=== PATIENT | female | born 2000 | race Caucasian/White ===

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

== ENCOUNTER 2018-08-29 10:15 | Inpatient (IN) | payer MEDICAID ==
[2018-08-29] MEDS ORDERED: diphenhydrAMINE 50 MG/ML SDV IVPUSH PRN (10:30)
[2018-08-29] MEDS ORDERED: Methylergonovine 0.2 MG/1 ML Amp IM PRN (10:30)
[2018-08-29] MEDS ORDERED: Citric Acid/Sodium Citrate Solution 30 ML Cup PO ONE (10:30)
[2018-08-29] MEDS ORDERED: ceFAZolin 2 GM in Premix Bag 1 BAG IV ONE (10:30)
[2018-08-29] MEDS ORDERED: Naloxone 2 MG/2 ML Syringe IVPUSH PRN (10:30)
[2018-08-29] MEDS ORDERED: Misoprostol 400 MCG (4 X 100 MCG TAB) RECTAL PRN (10:30)
[2018-08-29] MEDS ORDERED: Carboprost Tromethamine 250 MCG/1 ML Amp IM ONE (10:30)
[2018-08-29] MEDS ORDERED: Ondansetron 4 MG/2 ML SDV IV PRN (10:30)
[2018-08-29] MEDS ORDERED: Acetaminophen/oxyCODONE 325-5 MG Tab PO PRN (10:30)
[2018-08-29] MEDS ORDERED: Oxytocin/Normal Saline 30 UNIT/500 ML BAG IV SCH (10:30)
[2018-08-29] MEDS ORDERED: Acetaminophen 325 MG Tab PO PRN (10:30)
[2018-08-29] MEDS ORDERED: ePHEDrine 50 MG/ML SDV IVPUSH PRN (10:30)
[2018-08-29] MEDS ORDERED: Tranexamic Acid 1,000 MG in Sodium Chloride 0.9% 100 ML IV PRN (10:30)
[2018-08-29] MEDS: Lactated Ringers 1,000 ML IV SCH ×3 (11:30→21:33)
[2018-08-29] MEDS ORDERED: Oxytocin/Normal Saline 60 UNIT/1,000 ML BAG ONE (11:57)
[2018-08-29] MEDS: Simethicone 80 MG Tab.Chew PO SCH ×2 (18:27→20:18)
[2018-08-29] MEDS: Prenatal Multivitamin with Calcium/Folic Acid/Iron Tab PO SCH (18:27)
[2018-08-29] MEDS: AMOXICILLIN 875 MG PO SCH ×2 (18:28→20:11)
[2018-08-29] MEDS: Ketorolac 30 MG/ML SDV IVPUSH SCH (20:12)
[2018-08-30] MEDS: Ketorolac 30 MG/ML SDV IVPUSH SCH ×2 (01:56→09:12)
[2018-08-30] MEDS: Lactated Ringers 1,000 ML IV SCH (04:28)
[2018-08-30] MEDS: Docusate Sodium 100 MG Cap PO PRN ×2 (09:16→21:23)
[2018-08-30] MEDS: Simethicone 80 MG Tab.Chew PO SCH ×4 (09:16→21:23)
[2018-08-30] MEDS: AMOXICILLIN 875 MG PO SCH ×2 (09:16→21:22)
[2018-08-30] MEDS: Prenatal Multivitamin with Calcium/Folic Acid/Iron Tab PO SCH (09:16)
--- NOTE | 2018-08-30 09:53 | OR ---
DATE: 08/29/2018 PREOPERATIVE DIAGNOSES: 1. Intrauterine at 39-3/7th weeks by 12-4/7th weeks' ultrasound. 2. Previous section x2, requests repeat low transverse section. 3. History of urinary tract infection in the , treated, and negative culture thereafter. 4. Group B Streptococcus negative. 5. Impaired glucose tolerance. 6. Bacterial vaginosis - treated earlier in the . 7. Currently on amoxicillin for upper respiratory illness over this last week. 8. G3, P2-0-0-2. POSTOPERATIVE DIAGNOSES: 1. Intrauterine at 39-3/7th weeks by 12-4/7th weeks' ultrasound, delivered. 2. Previous section x2, requests repeat low transverse section. 3. History of urinary tract infection in the , treated and negative culture thereafter. 4. Group B Streptococcus negative. 5. Impaired glucose tolerance. 6. Bacterial vaginosis-treated earlier in the . 7. Currently on amoxicillin for upper respiratory illness over this last week. 8. G3, P2-0-0-2. PROCEDURES PERFORMED: Nonstress test followed by repeat low transverse section. FIRST ASSISTANTS: 1. Virgil Johnson MD. 2. Rafael Tineo MS-III. ANESTHESIA: Spinal. ESTIMATED BLOOD LOSS: 500 mL. INTRAVENOUS FLUIDS: 1500 mL. URINE OUTPUT: 200 mL and clear yellow. START: 1305. UTERINE INCISION: 1309. DELIVERY: 1309. STOP: 1329. FINDINGS: Male. Apgars and weight pending. DESCRIPTION OF PROCEDURE IN DETAIL: After proper consent obtained, the patient was brought to the operating room where spinal anesthetic was administered. Weaver was placed in preop under sterile conditions. Abdomen was prepped and draped in normal sterile fashion with the patient was placed in supine position with left lateral tilt. Skin incision was then made over lower abdomen in transverse Pfannenstiel-type fashion avoiding a pustule superior to the incision which was covered with a Tegaderm prior to this. The fascia was scored in the midline. Subcutaneous tissue was raked laterally with Herzog retractor. Fascial incision was extended in a transverse fashion using curved Pereyra. Nini clamps x2 were used to grasp the superior aspect of the fascia and rectus muscles dissected from fascia using sharp and blunt technique. In a similar fashion, Nini clamps x2 were used to grasp the inferior portion of the incision, and rectus and pyramidalis muscles were dissected from fascia using sharp and blunt technique. Rectus muscles were in midline with blunt technique. Abdominal cavity was then entered in a blunt technique. Incision was extended superiorly and inferiorly with blunt technique. Rafael O large retractor was then introduced and used. Vesicouterine peritoneum was identified and incised in transverse fashion with Metzenbaum scissors. Bladder flap was made digitally. A curvilinear incision was made on the lower uterine segment at 1309 hours. Uterus was entered sharply. Clear fluid returned. Uterine incision was then extended in transverse fashion using blunt technique. vertex was then brought through the incision followed by rest of the without difficulty and delivered. Mouth and nares were suctioned. Cord was doubly clamped and cut and infant was brought to team. Then, approximately 10 mL of cord blood was obtained for labs. Placenta then delivered with gentle cord traction and fundal massage. Uterine cavity was then cleared of all blood clots and debris with lap sponge. Miller clamps were used to grasp the uterine incision, and this was closed using 1-0 Vicryl in a running locked fashion and tied at lateral margins. Left lateral portion of incision revealed some bleeding, and 2 [id number] stitches were applied and hemostasis was reassured. First inspection of the uterine incision revealed hemostasis. Rafael O retractor was then removed, and paracolic gutters were then cleared of all blood clots and debris with lap sponge. Anterior cul-de-sac was irrigated copiously. All blood clots and debris were removed. Second and final inspection of the uterine incision and anterior cul-de-sac revealed hemostasis. Rectus muscles were reapproximated in midline with [id number] stitch using 1-0 Vicryl. Subfascial tissues were found to be hemostatic. Fascia was closed in a running fashion and tied at lateral margins with 0 looped PDS. Subcutaneous tissue was irrigated copiously. Hemostasis was reassured. Skin was reapproximated with medium moises. Lesion that was covered with Tegaderm, the dressing came off when removing surgical drapes. Therefore, this was closed with Dermabond to seal this off. Sterile Aquacel dressing was applied. Uterine fundus was firm and massaged at the conclusion of this case -2 below umbilicus. No immediate complications were noted. Sponge, lap, and needle counts were correct. The patient received 2 g of Ancef preoperatively, Pitocin per protocol, and will receive Toradol at the conclusion of the case for pain control. Mother and infant are currently stable at the time of dictation. [facility] /[id number]
--- NOTE | 2018-08-30 10:05 | OBOUT ---
DATE: 08/29/2018 DATE AND TIME OF NST: Date: 08/29/2018. Time: 10:32 to 10:52. REASON FOR NST: 1. Intrauterine at 39-3/7th weeks by 12-4/7th weeks' ultrasound. 2. Previous x2, requests repeat low transverse section. 3. History of UTI in the - treated and negative culture thereafter. 4. GBS negative. 5. Impaired glucose tolerance. 6. BV - treated. 7. On amoxicillin currently for URI. 8. G3, P2-0-0-2. NST INTERPRETATION: During this time period, heart tone baseline is approximately 125, and there are at least two 15 x 15 beat per minute accelerations, making this strip reactive. It is also noted to be reassuring. Tocometer reveals potential of 1 contraction. Blood pressure 119/73, heart rate 100, temperature 97.4. ASSESSMENT/PLAN: 1. Non-stress test - reactive, reassuring. 2. Tocometer with 1 contraction. PLAN: Please see admit history and physical done in conjunction and through [employer]. Today, review of systems is otherwise reviewed and felt to be noncontributory. Vitals as above. We will proceed to the OR as soon as crew is ready and available. The patient does have a name change. She was Chani Yan in the [employer] system and as unable to change it at this point in time, it has been noted. We will continue with current treatment plans. Please see orders as well. [facility] /[id number]
[2018-08-30] MEDS ORDERED: Ketorolac 30 MG/ML SDV IVPUSH ONE (11:55)
[2018-08-30] MEDS ORDERED: Ondansetron 4 MG/2 ML SDV IV ONE (11:55)
[2018-08-30] MEDS ORDERED: Lactated Ringers 1,000 ML IV ONE (11:55)
[2018-08-30] MEDS ORDERED: Dexamethasone 4 MG/ML SDV IV ONE (11:55)
[2018-08-30] MEDS ORDERED: Morphine PF 1 MG/ML Amp ONE (11:55)
[2018-08-30] MEDS ORDERED: Metoclopramide 10 MG/2 ML SDV IV ONE (11:55)
--- NOTE | 2018-08-30 14:41 | PN ---
DATE: 08/30/2018 Postoperative day #1, status post repeat low-transverse . SUBJECTIVE: The patient is tolerating p.o., has ambulated. Weaver is in place. Passing flatus. Pain is under control. Continues on her home medicines of amoxacillin as she was put on this for URI. OBJECTIVE: Vital Signs: Temperature 97.9, heart rate 80, blood pressure 117/64, respiratory rate 16, O2 sats 96%. Lungs: Clear to auscultation bilaterally when the patient coughs. Heart: S1, S2. Regular rate and rhythm. Abdomen: Firm uterus -2 below umbilicus. Aquacel dressing appears dry and intact. Extremities: SCDs and AMI hose are on. LABORATORY DATA: Reveal a white cell count of 17.3, hemoglobin 11.2, platelets 200. ASSESSMENT AND PLAN: Postoperative day #1, status post repeat low-transverse section. Appears to be doing well. We will continue her on amoxicillin for upper respiratory tract infection. Possibility of discharge tomorrow. Discussed with the patient. She understands and agrees with the above treatment plan. [facility] /[id number]
[2018-08-30] MEDS: Acetaminophen/oxyCODONE 325-5 MG Tab PO PRN ×2 (17:24→21:23)
[2018-08-30] MEDS: Ibuprofen 800 MG Tab PO PRN (17:25)
[2018-08-31] MEDS: Acetaminophen/oxyCODONE 325-5 MG Tab PO PRN ×4 (01:09→17:56)
[2018-08-31] MEDS: Ibuprofen 800 MG Tab PO PRN ×3 (01:10→17:56)
[2018-08-31] MEDS: Prenatal Multivitamin with Calcium/Folic Acid/Iron Tab PO SCH ×2 (07:32→10:27)
[2018-08-31] MEDS: Docusate Sodium 100 MG Cap PO PRN (07:33)
[2018-08-31] MEDS: Simethicone 80 MG Tab.Chew PO SCH ×5 (07:34→21:16)
[2018-08-31] MEDS: AMOXICILLIN 875 MG PO SCH ×3 (07:38→21:16)
--- NOTE | 2018-08-31 08:36 | PN ---
DATE: 08/31/2018 Postop day 2 status post repeat low-transverse . SUBJECTIVE: The patient is tolerating diet, ambulating, and having bowel movements. She is able to urinate on her own, but it does hurt towards the end. She feels burning and her cramps get worse. Pain is under control. She continues on her home medications of amoxicillin as she was on this for upper respiratory infection. She has had very light bleeding and some cramping that is better with the frog-leg position. is going well, but he is breast-feeding more on the right than the left. OBJECTIVE: Vital Signs: Temperature 98.9, pulse 93, blood pressure 126/74, respiratory rate 18, and oxygen saturation 97%. Lungs: Clear to auscultation bilaterally. Heart: S1 and S2. Regular rate and rhythm. Abdomen: Firm uterus, 2 cm below the umbilicus. Aquacel dressing appears dry and intact. Extremities: No peripheral edema. ASSESSMENT AND PLAN: Postoperative day 2 status post repeat low-transverse section. Appears to be doing well. Continue on her amoxicillin for upper respiratory tract infection. The patient agrees with above treatment plan. Planning on discharge tomorrow. The patient was seen by myself and Dr. Sheikh. Assessment and plan are under advisement of Dr. Sheikh. seen and agreed-TONYW Rafael Tineo, MS-III [facility] /[id number] MTDD
[2018-08-31] MEDS: Sodium Chloride 0.65% Nasal Spray 45 ML Bottle NAS PRN ×3 (09:39→21:17)
[2018-09-01] MEDS: Acetaminophen/oxyCODONE 325-5 MG Tab PO PRN ×3 (00:52→13:14)
[2018-09-01] MEDS: Ibuprofen 800 MG Tab PO PRN ×2 (00:52→10:43)
[2018-09-01] MEDS: Docusate Sodium 100 MG Cap PO PRN (07:56)
[2018-09-01 08:19] VITALS: BP 130/80
[2018-09-01] MEDS: AMOXICILLIN 875 MG PO SCH (09:24)
[2018-09-01] MEDS: Prenatal Multivitamin with Calcium/Folic Acid/Iron Tab PO SCH (09:24)
[2018-09-01] MEDS: Simethicone 80 MG Tab.Chew PO SCH ×2 (09:26→13:14)
--- NOTE | 2018-09-01 12:57 | PN ---
DATE: 09/01/2018 LOCATION: [facility]. SUBJECTIVE: The patient is postoperative day #3, status post repeat . Mom and baby are both doing well. She is ambulating, voiding, tolerating p.o. Good pain control. OBJECTIVE: Vital Signs: The patient is afebrile. Heart rate 84 to 101, blood pressure 115 to 130 over 57 to 80, respiratory rate 16 to 18. Abdomen: Benign. The Aquacel dressing is in place. Fundus is firm below the umbilicus. Extremities: Have no tenderness, no edema. LABORATORY DATA: The patient's postoperative hemoglobin was 11.2 from 12.5 predelivery. The patient's blood type is A positive. She is rubella immune. ASSESSMENT AND PLAN: Postoperative day #3, status post repeat section. Mom and baby are both doing well. We will discharge her to home with 20 Percocet and she will see her primary next week to have the moises and the Aquacel dressing removed. [facility] /[id number]
[2018-09-01] MEDS ORDERED: Oxytocin/Normal Saline 30 UNIT/500 ML BAG IV ONE (13:44)
== END 2018-09-01 13:45 | disposition home or self-care (01) | DRG 788 ==
LOC: DL.MS 10:15 → OBSVTOIN 13:09
PROVIDERS: ADMIT Family Medicine; ATTEND Family Medicine
PROC: 10D00Z1 Extraction of Products of Conception, Low, Open Approach (ICD-10-PCS; principal; 2018-08-29)
PROC: 4A1HXCZ Monitoring of Products of Conception, Cardiac Rate, External Approach (ICD-10-PCS; 2018-08-29)
DX: O34.211 Maternal care for low transverse scar from previous cesarean delivery (principal); O99.814 Abnormal glucose complicating childbirth; O99.513 Diseases of the respiratory system complicating pregnancy, third trimester; J06.9 Acute upper respiratory infection, unspecified; O99.333 Smoking (tobacco) complicating pregnancy, third trimester; F17.200 Nicotine dependence, unspecified, uncomplicated; Z3A.39 39 weeks gestation of pregnancy; Z37.0 Single live birth
CPT/HCPCS: 36415; 85027; 86850; 86900; 86901; A9270-GY; J0690; J1100; J1885; J2274; J2405; J2590; J2765; J7120

== ENCOUNTER 2019-04-19 19:21 | Emergency (ER) | payer MEDICAID ==
--- NOTE | 2019-04-19 19:35 | EDM.PDOC ---
ED HPI GENERAL MEDICAL PROBLEM - General Chief Complaint: Upper Extremity Injury/Pain Stated Complaint: SPRAINED RT HAND Time Seen by Provider: 04/19/19 19:33 Source of Information: Reports: Patient History Limitations: Reports: No Limitations - History of Present Illness INITIAL COMMENTS - FREE TEXT/NARRATIVE: twister right wrist. 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 History: right ovarian cysts, BV with Musculoskeletal History: Reports: None Neurological History: Reports: None Psychiatric History: Reports: ADHD, Depression Other Psychiatric History: trazadone for sleep Endocrine/Metabolic History: Reports: Other (See Below) Other Endocrine/Metabolic History: impaired glucose tolerance test Hematologic History: Reports: Anemia Immunologic History: Reports: None Oncologic (Cancer) History: Reports: None Dermatologic History: Reports: None - Infectious Disease History Infectious Disease History: Reports: Influenza - Past Surgical History HEENT Surgical History: Reports: Adenoidectomy, Tonsillectomy Female Surgical History: Reports: Section Social & Family History - Family History Family Medical History: Noncontributory Respiratory: Reports: Asthma Psychiatric: Reports: Anxiety, Bipolar - Caffeine Use Caffeine Use: Reports: None Caffeine Use Comment: occassional caffiene usage - Living Situation & Occupation Living situation: Reports: with Family Occupation: Student Review of Systems - Review of Systems Review Of Systems: Comprehensive ROS is negative, except as noted in HPI. ED EXAM, GENERAL - Physical Exam Exam: See Below Exam Limited By: No Limitations General Appearance: Alert, WD/WN, Mild Distress, Other (discomfort) Ears: Hearing Grossly Normal Throat/Mouth: Normal Voice, No Airway Compromise Head: Atraumatic Neck: Non-Tender, Full Range of Motion Respiratory/Chest: No Respiratory Distress Cardiovascular: Regular Rate, Rhythm GI/Abdominal: Soft, Non-Tender Extremities: Other (right wirst tender R/P, NV wnl, mild swelling) Neurological: Alert, Normal Cognition, Normal Gait, No Motor/Sensory Deficits Psychiatric: Normal Affect, Normal Mood Skin Exam: Warm, Dry, Normal Color Lymphatic: No Adenopathy Course - Vital Signs Last Recorded V/S: Last Vital Signs Temp 35.9 C 04/19/19 19:34 Pulse 101 H 04/19/19 19:34 Resp 16 04/19/19 19:34 BP 121/84 04/19/19 19:34 Pulse Ox 100 04/19/19 19:34 - Orders/Labs/Meds Orders: Active Orders 24 hr Category Date Time Status Wrist Comp Min 3V Rt [CR] Urgent Exams 04/19/19 19:33 Taken - Re-Assessments/Exams Free Text/Narrative Re-Assessment/Exam: 04/19/19 20:34 results discussed with pt. Departure - Departure Time of Disposition: 20:34 Disposition: Home, Self-Care 01 Condition: Good Clinical Impression: Sprain of wrist, right Qualifiers: Encounter type: initial encounter Qualified Code(s): S63.501A - Unspecified sprain of right wrist, initial encounter - Discharge Information Instructions: Wrist Sprain, Adult Forms: ED Department Discharge Additional Instructions: 1) wear brace for comfort 2) take tylenol or motrin for discomfort 3) follow up at clinic Sepsis Event Note - Focused Exam Vital Signs: Vital Signs Temp Pulse Resp BP Pulse Ox 04/19/19 19:34 35.9 C 101 H 16 121/84 100 Date Exam was Performed: 04/19/19 Time Exam was Performed: 20:34 - My Orders Last 24 Hours: My Active Orders 04/19/19 19:33 Wrist Comp Min 3V Rt [CR] Urgent - Assessment/Plan Last 24 Hours: My Active Orders 04/19/19 19:33 Wrist Comp Min 3V Rt [CR] Urgent
[2019-04-19 19:47] VITALS: BP 121/84; PULSE 101
== END 2019-04-19 20:40 | disposition home or self-care (01) ==
LOC: DL.ED 19:21
DX: S63.501A Unspecified sprain of right wrist, initial encounter (principal); J45.909 Unspecified asthma, uncomplicated; Z91.040 Latex allergy status; Z91.048 Other nonmedicinal substance allergy status; Z88.8 Allergy status to other drugs, medicaments and biological substances; X50.1XXA Overexertion from prolonged static or awkward postures, initial encounter
CPT/HCPCS: 73110-RT; 99283-25

== ENCOUNTER 2019-04-21 18:45 | Emergency (ER) | payer MEDICAID ==
[2019-04-21] MEDS ORDERED: Albuterol 6.7 GM Inhaler INH ONE ×2 (18:46→19:41)
[2019-04-21 18:51] VITALS: BP 144/82; PULSE 110
[2019-04-21] MEDS ORDERED: Azithromycin 250 MG Tab PO ONE (19:38)
--- NOTE | 2019-04-21 19:45 | EDM.PDOC ---
ED HPI GENERAL MEDICAL PROBLEM - General Chief Complaint: Respiratory Problem Stated Complaint: RESPIRATORY PROBLEM Time Seen by Provider: 04/21/19 19:41 Source of Information: Reports: Patient History Limitations: Reports: No Limitations - History of Present Illness INITIAL COMMENTS - FREE TEXT/NARRATIVE: cough spasms past 2 days. 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: right ovarian cysts, BV with Musculoskeletal History: Reports: None Neurological History: Reports: None Psychiatric History: Reports: ADHD, Depression Other Psychiatric History: trazadone for sleep Endocrine/Metabolic History: Reports: Other (See Below) Other Endocrine/Metabolic History: impaired glucose tolerance test Hematologic History: Reports: Anemia Immunologic History: Reports: None Oncologic (Cancer) History: Reports: None Dermatologic History: Reports: None - Infectious Disease History Infectious Disease History: Reports: Influenza - Past Surgical History HEENT Surgical History: Reports: Adenoidectomy, Tonsillectomy Female Surgical History: Reports: Section Social & Family History - Family History Family Medical History: Noncontributory Respiratory: Reports: Asthma Psychiatric: Reports: Anxiety, Bipolar - Tobacco Use Smoking Status *Q: Current Every Day Smoker Years of Tobacco use: 4 Packs/Tins Daily: 0.5 Second Hand Smoke Exposure: Yes - Caffeine Use Caffeine Use: Reports: None Caffeine Use Comment: occassional caffiene usage - Recreational Drug Use Recreational Drug Use: No - Living Situation & Occupation Living situation: Reports: with Family Occupation: Student ED ROS GENERAL - Review of Systems Review Of Systems: Comprehensive ROS is negative, except as noted in HPI. ED EXAM, GENERAL - Physical Exam Exam: See Below Exam Limited By: No Limitations General Appearance: Alert, WD/WN, Mild Distress, Other (cough spasms) Ears: Hearing Grossly Normal Throat/Mouth: Normal Voice, No Airway Compromise Head: Atraumatic Neck: Non-Tender, Full Range of Motion Respiratory/Chest: No Accessory Muscle Use, Rhonchi. No: Decreased Breath Sounds Cardiovascular: Regular Rate, Rhythm GI/Abdominal: Soft, Non-Tender Neurological: Alert, Oriented, Normal Cognition, Normal Gait, No Motor/Sensory Deficits Psychiatric: Normal Affect, Normal Mood Skin Exam: Warm, Dry, Normal Color Lymphatic: No Adenopathy Course - Vital Signs Last Recorded V/S: Last Vital Signs Temp 35.8 C 04/21/19 18:48 Pulse 110 H 04/21/19 18:48 Resp 18 04/21/19 18:48 BP 144/82 H 04/21/19 18:48 Pulse Ox 100 04/21/19 18:48 - Orders/Labs/Meds Orders: Active Orders 24 hr Category Date Time Status Chest 2V [CR] Urgent Exams 04/21/19 19:16 Ordered Meds: Medications Discontinued Medications Generic Name Dose Route Start Last Admin Trade Name Freq PRN Reason Stop Dose Admin Azithromycin 500 mg 04/21/19 19:38 Zithromax PO 04/21/19 19:39 ONETIME ONE Departure - Departure Time of Disposition: 19:43 Disposition: Home, Self-Care 01 Condition: Good Clinical Impression: Bronchospasm with bronchitis, acute - Discharge Information Instructions: Acute Bronchitis, Adult, [id number] Additional Instructions: 1) don't sleep flat at night 2) drink lots of liquids 3) recheck as needed rx togo; albuterol inhaler tid prn rx given; z-kaelyn medrol dospak Sepsis Event Note - Evaluation Sepsis Screening Result: No Definite Risk - Focused Exam Vital Signs: Vital Signs Temp Pulse Resp BP Pulse Ox 04/21/19 18:48 35.8 C 110 H 18 144/82 H 100 Date Exam was Performed: 04/21/19 Time Exam was Performed: 19:41 - My Orders Last 24 Hours: My Active Orders 04/21/19 19:16 Chest 2V [CR] Urgent - Assessment/Plan Last 24 Hours: My Active Orders 04/21/19 19:16 Chest 2V [CR] Urgent
== END 2019-04-21 19:49 | disposition home or self-care (01) ==
LOC: DL.ED 18:45
DX: J20.9 Acute bronchitis, unspecified (principal); F17.210 Nicotine dependence, cigarettes, uncomplicated; Z91.09 Other allergy status, other than to drugs and biological substances; Z91.040 Latex allergy status; Z88.8 Allergy status to other drugs, medicaments and biological substances
CPT/HCPCS: 71046; 99283; A9270

== ENCOUNTER 2019-06-14 22:11 | Emergency (ER) | payer MEDICAID ==
[2019-06-15 00:07] VITALS: BP 133/79; PULSE 87
[2019-06-15] MEDS ORDERED: Ondansetron 4 MG Tab.DIS PO ONE (00:15)
--- NOTE | 2019-06-15 00:51 | EDM.PDOC ---
ED HPI GENERAL MEDICAL PROBLEM - General Chief Complaint: Gastrointestinal Problem Stated Complaint: VOMITING Time Seen by Provider: 06/15/19 00:15 Source of Information: Reports: Patient, RN, RN Notes Reviewed History Limitations: Reports: No Limitations - History of Present Illness INITIAL COMMENTS - FREE TEXT/NARRATIVE: patient presents to the ER with complaint of vomiting which began at 8:30 PM this evening. Patient states she has vomited twice. Patient admits to diarrhea that began this morning. Patient states she last had supper at [facility]. Patient states she is sexually active, but has taken 3 tests in the past 3 days and they have been negative. Patient denies fever or chills. Onset: Today, Sudden - Related Data Allergies Allergy/AdvReac Type Severity Reaction Status Date / Time latex Allergy Rash Verified 06/14/19 23:42 lisdexamfetamine dimesylate Allergy Hives Verified 06/14/19 23:42 [From Vyvanse] tape adhesive Allergy Rash Uncoded 06/14/19 23:42 Home Meds: Home Meds . 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: right ovarian cysts, BV with Musculoskeletal History: Reports: None Neurological History: Reports: None Psychiatric History: Reports: ADHD, Depression Other Psychiatric History: trazadone for sleep Endocrine/Metabolic History: Reports: Other (See Below) Other Endocrine/Metabolic History: impaired glucose tolerance test Hematologic History: Reports: Anemia Immunologic History: Reports: None Oncologic (Cancer) History: Reports: None Dermatologic History: Reports: None - Infectious Disease History Infectious Disease History: Reports: Influenza - Past Surgical History HEENT Surgical History: Reports: Adenoidectomy, Tonsillectomy Female Surgical History: Reports: Section Social & Family History - Family History Family Medical History: Noncontributory Respiratory: Reports: Asthma Psychiatric: Reports: Anxiety, Bipolar - Tobacco Use Smoking Status *Q: Current Every Day Smoker Years of Tobacco use: 6 Packs/Tins Daily: 1 Second Hand Smoke Exposure: Yes - Caffeine Use Caffeine Use: Reports: Coffee, Energy Drinks, Soda Caffeine Use Comment: occassional caffiene usage - Recreational Drug Use Recreational Drug Use: No - Living Situation & Occupation Living situation: Reports: with Family Occupation: Student ED ROS GENERAL - Review of Systems Review Of Systems: Comprehensive ROS is negative, except as noted in HPI. ED EXAM, GENERAL - Physical Exam Exam: See Below Exam Limited By: No Limitations General Appearance: Alert, WD/WN, No Apparent Distress Eye Exam: Bilateral Eye: EOMI, Normal Inspection Ears: Normal External Exam, Hearing Grossly Normal Nose: Normal Inspection Throat/Mouth: Normal Inspection, Normal Voice, No Airway Compromise Head: Atraumatic, Normocephalic Neck: Normal Inspection, Supple, Non-Tender, Full Range of Motion Respiratory/Chest: No Respiratory Distress, Lungs Clear, Normal Breath Sounds, No Accessory Muscle Use, Chest Non-Tender Cardiovascular: Normal Peripheral Pulses, Regular Rate, Rhythm, No Edema, No Gallop, No JVD, No Murmur, No Rub GI/Abdominal: Normal Bowel Sounds, Soft, Tender (epigastric) (Female) Exam: Deferred Rectal (Female) Exam: Deferred Back Exam: Normal Inspection, Full Range of Motion Extremities: Normal Inspection, Normal Range of Motion, Non-Tender, Normal Capillary Refill, No Pedal Edema Neurological: Alert, Oriented, CN II-XII Intact, Normal Cognition, Normal Gait, Normal Reflexes, No Motor/Sensory Deficits Psychiatric: Normal Affect, Normal Mood Skin Exam: Warm, Dry, Intact, Normal Color, No Rash Lymphatic: No Adenopathy Course - Vital Signs Last Recorded V/S: Last Vital Signs Temp 97.2 F 06/15/19 00:06 Pulse 87 06/15/19 00:06 Resp 16 06/15/19 00:06 BP 133/79 06/15/19 00:06 Pulse Ox 100 06/15/19 00:06 - Orders/Labs/Meds Labs: Laboratory Tests 06/15/19 06/15/19 Range/Units 00:15 00:17 Urine Color Dark yellow (YELLOW) Urine Appearance Slightly cloudy (CLEAR) Urine pH 5.5 (5.0-9.0) Ur Specific Miller >= 1.030 (1.005-1.030) Urine Protein Trace H (NEGATIVE) Urine Glucose (UA) Negative (NEGATIVE) Urine Ketones Negative (NEGATIVE) Urine Occult Blood Negative (NEGATIVE) Urine Nitrite Negative (NEGATIVE) Urine Bilirubin Small H (NEGATIVE) Urine Urobilinogen 0.2 (0.2-1.0) mg/dL Ur Leukocyte Esterase Negative (NEGATIVE) Urine RBC 0-5 /HPF Urine WBC 0-5 (0-5/HPF) /HPF Ur Epithelial Cells Many H (NOT SEEN) /HPF Urine Bacteria Many H (0-FEW/HPF) /HPF Urine Mucus Moderate H (NOT SEEN) /LPF Urine Other See note Urine Yeast Few H (NOT SEEN) /HPF Urine HCG, Qual Negative Meds: Medications Discontinued Medications Generic Name Dose Route Start Last Admin Trade Name Freq PRN Reason Stop Dose Admin Ondansetron HCl 4 mg 06/15/19 00:15 06/15/19 00:21 Zofran Odt PO 06/15/19 00:16 4 mg ONETIME ONE Administration Departure - Departure Time of Disposition: 00:49 Disposition: Home, Self-Care 01 Condition: Fair Clinical Impression: Gastroenteritis, Bacterial vaginosis - Discharge Information *PRESCRIPTION DRUG MONITORING PROGRAM REVIEWED*: No *COPY OF PRESCRIPTION DRUG MONITORING REPORT IN PATIENT ASH: No Instructions: Viral Gastroenteritis, Adult, [id number], Food Choices to Help Relieve Diarrhea, Adult, Nausea and Vomiting, Adult, [id number], Bacterial Vaginosis, [id number], Diarrhea, Adult, [id number] Referrals: Sri Alcantar NP [Primary Care Provider] - Forms: ED Department Discharge Additional Instructions: RX: Zofran, Metronidazole Drink small sips frequently May use Imodium over the counter for diarrhea as directed Follow up with your primary care facility if no improvement Sepsis Event Note - Evaluation Sepsis Screening Result: No Definite Risk - Focused Exam Vital Signs: Vital Signs Temp Pulse Resp BP Pulse Ox 06/15/19 00:06 97.2 F 87 16 133/79 100 Date Exam was Performed: 06/15/19 Time Exam was Performed: 01:59
== END 2019-06-15 01:06 | disposition home or self-care (01) ==
LOC: DL.ED 22:11
DX: K52.9 Noninfective gastroenteritis and colitis, unspecified (principal); N76.0 Acute vaginitis; B96.89 Other specified bacterial agents as the cause of diseases classified elsewhere; F17.210 Nicotine dependence, cigarettes, uncomplicated; Z91.040 Latex allergy status; Z88.8 Allergy status to other drugs, medicaments and biological substances
CPT/HCPCS: 81001; 81025; 99284; A9270

== ENCOUNTER 2019-07-20 09:06 | Emergency (ER) | payer MEDICAID ==
[2019-07-20 09:17] VITALS: BP 142/99; PULSE 90
--- NOTE | 2019-07-20 09:35 | EDM.PDOC ---
Scribed by Mima Rosario 07/20/19 0990 for Jose Sanabria PA ED HPI GENERAL MEDICAL PROBLEM - General Chief Complaint: Upper Extremity Injury/Pain Stated Complaint: RT ARM IS SWOLLEN/RT HAND HURTS Time Seen by Provider: 07/20/19 09:18 Source of Information: Reports: Patient, RN, RN Notes Reviewed History Limitations: Reports: No Limitations - History of Present Illness INITIAL COMMENTS - FREE TEXT/NARRATIVE: This 18 yo female patient reports to the ED with right wrist pain. The patient reports she started noticing the pain with movement last night at about 11:30. The patient has not taken anything for temporary symptom relief. The patient was seen in the ED in April for the same problem, but has not followed up with her primary care provider. 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: right ovarian cysts, BV with Musculoskeletal History: Reports: None Neurological History: Reports: None Psychiatric History: Reports: ADHD, Depression Other Psychiatric History: trazadone for sleep Endocrine/Metabolic History: Reports: Other (See Below) Other Endocrine/Metabolic History: impaired glucose tolerance test Hematologic History: Reports: Anemia Immunologic History: Reports: None Oncologic (Cancer) History: Reports: None Dermatologic History: Reports: None - Infectious Disease History Infectious Disease History: Reports: Influenza - Past Surgical History HEENT Surgical History: Reports: Adenoidectomy, Tonsillectomy Female Surgical History: Reports: Section Social & Family History - Family History Family Medical History: Noncontributory Respiratory: Reports: Asthma Psychiatric: Reports: Anxiety, Bipolar - Caffeine Use Caffeine Use: Reports: Coffee, Energy Drinks, Soda Caffeine Use Comment: occassional caffiene usage - Living Situation & Occupation Living situation: Reports: with Family Occupation: Student Review of Systems - Review of Systems Review Of Systems: Comprehensive ROS is negative, except as noted in HPI. ED EXAM, GENERAL - Physical Exam Exam: See Below Exam Limited By: No Limitations General Appearance: Alert, WD/WN, Mild Distress Eye Exam: Bilateral Eye: EOMI, Normal Inspection, PERRL Ears: Normal External Exam, Normal Canal, Hearing Grossly Normal, Normal TMs Nose: Normal Inspection, Normal Mucosa, No Blood Throat/Mouth: Normal Inspection, Normal Lips, Normal Teeth, Normal Gums, Normal Oropharynx, Normal Voice, No Airway Compromise Head: Atraumatic, Normocephalic Neck: Normal Inspection, Supple, Non-Tender, Full Range of Motion Respiratory/Chest: No Respiratory Distress, Lungs Clear, Normal Breath Sounds, No Accessory Muscle Use, Chest Non-Tender Cardiovascular: Normal Peripheral Pulses, Regular Rate, Rhythm, No Edema, No Gallop, No JVD, No Murmur, No Rub GI/Abdominal: Normal Bowel Sounds, Soft, Non-Tender, No Organomegaly, No Distention, No Abnormal Bruit, No Mass (Female) Exam: Deferred Rectal (Female) Exam: Deferred Back Exam: Normal Inspection, Full Range of Motion, NT Extremities: Arm Pain (right wrist) Neurological: Alert, Oriented, CN II-XII Intact, Normal Cognition, Normal Gait, Normal Reflexes, No Motor/Sensory Deficits Psychiatric: Normal Affect, Normal Mood Skin Exam: Warm, Dry, Intact, Normal Color, No Rash Lymphatic: No Adenopathy Course - Vital Signs Last Recorded V/S: Last Vital Signs Temp 36.2 C 07/20/19 09:13 Pulse 90 07/20/19 09:13 Resp 16 07/20/19 09:13 BP 142/99 H 07/20/19 09:13 Pulse Ox 100 07/20/19 09:13 Departure - Departure Time of Disposition: 09:33 Disposition: Home, Self-Care 01 Condition: Fair Clinical Impression: Strain of right wrist Qualifiers: Encounter type: initial encounter Qualified Code(s): S66.911A - Strain of unspecified muscle, fascia and tendon at wrist and hand level, right hand, initial encounter - Discharge Information *PRESCRIPTION DRUG MONITORING PROGRAM REVIEWED*: Not Applicable *COPY OF PRESCRIPTION DRUG MONITORING REPORT IN PATIENT ASH: Not Applicable Instructions: Muscle Strain, [id number] Forms: ED Department Discharge Care Plan Goals: The patient was advised of the examination results during the visit. The patient was placed in a manufactured splint for her right wrist. If the patient has any additional symptoms or concerns, the patient should either visit her primary care facility or return to the emergency department. Sepsis Event Note - Evaluation Sepsis Screening Result: No Definite Risk - Focused Exam Vital Signs: Vital Signs Temp Pulse Resp BP Pulse Ox 07/20/19 09:13 36.2 C 90 16 142/99 H 100 Date Exam was Performed: 07/20/19 Time Exam was Performed: 09:25 I have read and agree with the documentation that has been completed regarding this visit. By signing this record, I attest that the documentation was completed in my physical presence and is an accurate record of the encounter.
== END 2019-07-20 09:38 | disposition home or self-care (01) ==
LOC: DL.ED 09:06
DX: S66.911A Strain of unspecified muscle, fascia and tendon at wrist and hand level, right hand, initial encounter (principal); Z91.040 Latex allergy status; Z91.048 Other nonmedicinal substance allergy status; Z88.8 Allergy status to other drugs, medicaments and biological substances; X58.XXXA Exposure to other specified factors, initial encounter
CPT/HCPCS: 29125; 99283-25

== ENCOUNTER 2019-11-01 19:25 | Emergency (ER) | payer MEDICAID ==
--- NOTE | 2019-11-01 19:50 | CR ---
PROCEDURE INFORMATION: Exam: XR Right Ankle Exam date and time: 11/01/2019 7:35 PM Age: 18 years old Clinical indication: Other: No known trauma/pain TECHNIQUE: Imaging protocol: XR Right ankle. Views: 3 or more views. COMPARISON: No relevant prior studies available. FINDINGS: Bones/joints: There is no evidence of acute fracture. There is no evidence of joint malalignment or dislocation. Soft tissues: There are no soft tissue masses or fluid collections. IMPRESSION: 1. No evidence of acute fracture. 2. No evidence of acute dislocation.
[2019-11-01 19:56] VITALS: BP 140/89; PULSE 105
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
[2019-11-01] MEDS ORDERED: Ibuprofen 600 MG Tab PO ONE (20:13)
== END 2019-11-01 20:23 | disposition home or self-care (01) ==
LOC: DL.ED 19:25
DX: M25.571 Pain in right ankle and joints of right foot (principal); F17.210 Nicotine dependence, cigarettes, uncomplicated; Z91.040 Latex allergy status; Z88.8 Allergy status to other drugs, medicaments and biological substances; Z91.048 Other nonmedicinal substance allergy status
CPT/HCPCS: 73610; 99283; A9270

== ENCOUNTER 2019-11-09 17:27 | Emergency (ER) | payer MEDICAID ==
[2019-11-09 17:34] VITALS: BP 120/85; PULSE 108
[2019-11-09] MEDS ORDERED: Ketorolac 30 MG/ML SDV IVPUSH ONE (17:37)
[2019-11-09] MEDS ORDERED: diphenhydrAMINE 50 MG/ML SDV IVPUSH ONE (17:37)
[2019-11-09] MEDS ORDERED: Sodium Chloride 0.9% 1,000 ML IV ONE (17:37)
[2019-11-09] MEDS ORDERED: Sodium Chloride 0.9% 10 ML Syringe FLUSH PRN (17:38)
[2019-11-09] MEDS ORDERED: LORazepam 2 MG/ML SDV IVPUSH ONE (17:38)
[2019-11-09] MEDS ORDERED: Metoclopramide 10 MG/2 ML SDV IVPUSH ONE (17:38)
[2019-11-09 18:37] LABS: ANION GAP 11.7 mEq/L (7-13); CHLORIDE,CL 106 mmol/L (98-107); SODIUM,NA 141 mmol/L (136-145)
--- NOTE | 2019-11-09 18:39 | EDM.PDOC ---
Scribed by Mima Rosario 11/09/19 0862 for Galdino Ding MD ED HPI GENERAL MEDICAL PROBLEM - General Chief Complaint: General Stated Complaint: NAUSEA/FATIQUE Time Seen by Provider: 11/09/19 17:36 Source of Information: Reports: Patient, Old Records, RN, RN Notes Reviewed History Limitations: Reports: No Limitations - History of Present Illness INITIAL COMMENTS - FREE TEXT/NARRATIVE: Patient presents to ED by POV with complaint of headache, nausea, vomited twice and diarrhea. She took an Imitrex yesterday and it did not work and now she is out. Pt reports onset of mild diarrhea with nausea yesterday before the migraine started. Denies fever, chills, dysuria, , cough, chest pain, or any COVID exposures. Onset: Gradual Onset Date: 11/08/19 Duration: Constant Location: Reports: Head Quality: Reports: Ache Severity: Moderate Improves with: Reports: None Worsens with: Reports: None Associated Symptoms: Reports: No Other Symptoms Generalized Pain Score (Numeric/FACES): 4 - Related Data Allergies Allergy/AdvReac Type Severity Reaction Status Date / Time latex Allergy Rash Verified 11/09/19 17:31 lisdexamfetamine dimesylate Allergy Hives Verified 11/09/19 17:31 [From Vyvanse] tape adhesive Allergy Rash Uncoded 11/09/19 17:31 Home Meds: Home Meds . 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 History: right ovarian cysts, BV with Musculoskeletal History: Reports: None Neurological History: Reports: Migraines Psychiatric History: Reports: ADHD, Depression Other Psychiatric History: trazadone for sleep Endocrine/Metabolic History: Reports: Other (See Below) Other Endocrine/Metabolic History: impaired glucose tolerance test Hematologic History: Reports: Anemia Immunologic History: Reports: None Oncologic (Cancer) History: Reports: None Dermatologic History: Reports: None - Infectious Disease History Infectious Disease History: Reports: Influenza - Past Surgical History Head Surgeries/Procedures: Reports: None HEENT Surgical History: Reports: Adenoidectomy, Tonsillectomy Female Surgical History: Reports: Section Social & Family History - Family History Family Medical History: Noncontributory Respiratory: Reports: Asthma Psychiatric: Reports: Anxiety, Bipolar - Caffeine Use Caffeine Use: Reports: Coffee, Energy Drinks, Soda, Tea Caffeine Use Comment: occassional caffiene usage - Living Situation & Occupation Living situation: Reports: with Family Occupation: Student ED ROS GENERAL - Review of Systems Review Of Systems: Comprehensive ROS is negative, except as noted in HPI. ED EXAM, GENERAL - Physical Exam Exam: See Below Exam Limited By: No Limitations General Appearance: Alert, WD/WN, No Apparent Distress, Obese Eye Exam: Bilateral Eye: EOMI, Normal Inspection, PERRL Nose: Normal Inspection Throat/Mouth: Normal Inspection, Normal Lips, Normal Teeth, Normal Gums, Normal Oropharynx, Normal Voice, No Airway Compromise Head: Atraumatic, Normocephalic Neck: Normal Inspection, Supple, Non-Tender, Full Range of Motion Respiratory/Chest: No Respiratory Distress, Lungs Clear, Normal Breath Sounds, No Accessory Muscle Use, Chest Non-Tender Cardiovascular: Normal Peripheral Pulses, Regular Rate, Rhythm, Tachycardia GI/Abdominal: Normal Bowel Sounds, Soft, Non-Tender, No Organomegaly, No Distention, No Abnormal Bruit, No Mass. No: Guarding, Rigid, Rebound Back Exam: Normal Inspection Extremities: Normal Inspection Neurological: Alert, Oriented, CN II-XII Intact, Normal Cognition, Normal Gait, No Motor/Sensory Deficits Psychiatric: Normal Affect, Normal Mood Skin Exam: Warm, Dry, Intact, Normal Color, No Rash Course - Vital Signs Last Recorded V/S: Last Vital Signs Temp 98.0 F 11/09/19 17:33 Pulse 108 H 11/09/19 17:33 Resp 18 11/09/19 17:33 BP 120/85 11/09/19 17:33 Pulse Ox 100 11/09/19 17:33 - Orders/Labs/Meds Orders: Active Orders 24 hr Category Date Time Status Peripheral IV Care [RC] . DIRECTED Care 11/09/19 17:38 Active Sodium Chloride 0.9% [Saline Flush] Med 11/09/19 17:38 Active 10 ml FLUSH ASDIRECTED PRN Peripheral IV Insertion Adult [OM.PC] Stat Oth 11/09/19 17:37 Ordered Medication Orders Sodium Chloride (Saline Flush) 10 ml FLUSH ASDIRECTED PRN PRN Reason: Keep Vein Open Last Admin: 11/09/19 17:55 Dose: 10 ml Documented by: BI Labs: Laboratory Tests 11/09/19 11/09/19 11/09/19 Range/Units 17:45 17:45 17:51 WBC 12.9 H (5.0-10.0) 10^3/uL RBC 4.89 (4.2-5.4) 10^6/uL Hgb 14.1 (12.0-16.0) g/dL Hct 41.9 (37.0-47.0) % MCV 85.7 (80-100) fL MCH 28.8 (27.0-34.0) pg MCHC 33.7 (33.0-35.0) g/dL Plt Count 214 D (150-450) 10^3/uL Neut % (Auto) 69.2 (42.2-75.2) % Lymph % (Auto) 20.8 (20.5-50.1) % Wilkes % (Auto) 5.3 (2-8) % Eos % (Auto) 4.3 H (1.0-3.0) % Baso % (Auto) 0.4 (0.0-1.0) % Sodium 141 (136-145) mmol/L Potassium 3.7 (3.5-5.1) mmol/L Chloride 106 (98-107) mmol/L Carbon Dioxide 27 (21-32) mmol/L Anion Gap 11.7 (7-13) mEq/L BUN 11 (7-18) mg/dL Creatinine 0.76 (0.55-1.02) mg/dL Est Cr Clr Drug Dosing 105.36 mL/min Estimated GFR (MDRD) > 60 BUN/Creatinine Ratio 14.5 (No establ ref range) Glucose 94 (74-99) mg/dL Calcium 8.5 (8.5-10.1) mg/dL Total Bilirubin 0.3 (0.2-1.0) mg/dL AST 16 (15-37) U/L ALT 25 (14-59) U/L Alkaline Phosphatase 84 (46-116) U/L C-Reactive Protein 1.9 H (0.0-0.9) mg/dL Total Protein 6.7 (6.4-8.2) g/dL Albumin 3.4 (3.4-5.0) g/dL Globulin 3.3 Albumin/Globulin Ratio 1.0 Urine HCG, Qual Negative Meds: Medications Generic Name Dose Route Start Last Admin Trade Name Freq PRN Reason Stop Dose Admin Sodium Chloride 10 ml 11/09/19 17:38 11/09/19 17:55 Saline Flush FLUSH 10 ml ASDIRECTED PRN Administration Keep Vein Open Discontinued Medications Generic Name Dose Route Start Last Admin Trade Name Freq PRN Reason Stop Dose Admin Diphenhydramine HCl 25 mg 11/09/19 17:37 11/09/19 17:53 Benadryl IVPUSH 11/09/19 17:38 25 mg ONETIME ONE Administration Sodium Chloride 1,000 mls @ 999 mls/hr 11/09/19 17:37 11/09/19 17:51 Normal Saline IV 11/09/19 18:37 999 mls/hr .BOLUS ONE Administration Ketorolac Tromethamine 30 mg 11/09/19 17:37 11/09/19 17:51 Toradol IVPUSH 11/09/19 17:38 30 mg ONETIME ONE Administration Lorazepam 0.5 mg 11/09/19 17:38 11/09/19 17:54 Ativan IVPUSH 11/09/19 17:39 0.5 mg ONETIME ONE Administration Metoclopramide HCl 10 mg 11/09/19 17:38 11/09/19 17:52 Reglan IVPUSH 11/09/19 17:39 10 mg ONETIME ONE Administration Departure - Departure Time of Disposition: 19:00 Disposition: Home, Self-Care 01 Condition: Good Clinical Impression: Gastroenteritis Migraine Qualifiers: Migraine type: without aura Status migrainosus presence: without status migrainosus Intractability: not intractable Qualified Code(s): G43.009 - Migraine without aura, not intractable, without status migrainosus - Discharge Information *PRESCRIPTION DRUG MONITORING PROGRAM REVIEWED*: Not Applicable *COPY OF PRESCRIPTION DRUG MONITORING REPORT IN PATIENT ASH: Not Applicable Instructions: Migraine Headache, [id number], Viral Gastroenteritis, Adult, [id number] Forms: ED Department Discharge Additional Instructions: Rx: Reglan (Metoclopramide) 10mg (for nausea or migraine) Clear liquid diet until nausea resolves, then advance to soft bland diet as tolerated. Follow up in clinic in 2 to 3 days if not completely improved. Sepsis Event Note (ED) - Evaluation Sepsis Screening Result: No Definite Risk - Focused Exam Vital Signs: Vital Signs Temp Pulse Resp BP Pulse Ox 11/09/19 17:33 98.0 F 108 H 18 120/85 100 - My Orders Last 24 Hours: My Active Orders 11/09/19 17:37 Peripheral IV Insertion Adult [OM.PC] Stat 11/09/19 17:38 Peripheral IV Care [RC] . DIRECTED Sodium Chloride 0.9% [Saline Flush] 10 ml FLUSH ASDIRECTED PRN - Assessment/Plan Last 24 Hours: My Active Orders 11/09/19 17:37 Peripheral IV Insertion Adult [OM.PC] Stat 11/09/19 17:38 Peripheral IV Care [RC] . DIRECTED Sodium Chloride 0.9% [Saline Flush] 10 ml FLUSH ASDIRECTED PRN I have read and agree with the documentation that has been completed regarding this visit. By signing this record, I attest that the documentation was completed in my physical presence and is an accurate record of the encounter.
== END 2019-11-09 19:00 | disposition home or self-care (01) ==
LOC: DL.ED 17:27
DX: G43.009 Migraine without aura, not intractable, without status migrainosus (principal); K52.9 Noninfective gastroenteritis and colitis, unspecified; Z91.040 Latex allergy status; Z91.048 Other nonmedicinal substance allergy status; Z88.8 Allergy status to other drugs, medicaments and biological substances
CPT/HCPCS: 36415; 80053; 81025; 85025; 86140; 96361; 96374; 96375; 99284; J1200; J1885; J2060; J2765; J7030; 99283

== ENCOUNTER 2019-11-12 01:04 | Emergency (ER) | payer MEDICAID ==
[2019-11-12 01:24] VITALS: BP 136/95; PULSE 95
--- NOTE | 2019-11-12 01:24 | EDM.PDOC ---
ED HPI GENERAL MEDICAL PROBLEM - General Chief Complaint: Respiratory Problem Stated Complaint: STOMACH ISSUES Time Seen by Provider: 11/12/19 01:15 Source of Information: Reports: Patient, EMS History Limitations: Reports: No Limitations - History of Present Illness INITIAL COMMENTS - FREE TEXT/NARRATIVE: Patient comes emergency department today with complaints of nausea vomiting and chest pain. This patient since 07 November is complained of sharp shooting stabbing squeezing heaviness pressure chest pain that is intermittent. She feels like when she exhales that her lungs are going to collapse. She has had no cough or congestion. No fever no chills. No cold exposure. She denies any covert symptoms. No loss of taste or smell. She is a smoker that smokes about a quar ter to half a pack of cigarettes a day. She has no increased production of sputum. She also complains of nausea and vomiting. No abdominal pain. No hematuria dysuria or urinary frequency. No black or tarry stools. She was seen in the emergency department a couple of days ago for similar symptomology and she was told that she had the stomach flu. She continues to be nauseous vomiting and having this chest pain. Upper Chest Pain Score (Numeric/FACES): 6 - Related Data Allergies Allergy/AdvReac Type Severity Reaction Status Date / Time latex Allergy Rash Verified 11/12/19 01:23 lisdexamfetamine dimesylate Allergy Hives Verified 11/12/19 01:23 [From Vyvanse] tape adhesive Allergy Rash Uncoded 11/12/19 01:23 Home Meds: Home Meds . [No Known Home Meds] 06/14/19 [History] Past Medical History - Past Health History Medical/Surgical History: Denies Medical/Surgical History Cardiovascular History: Reports: None Respiratory History: Reports: Other (See Below) Other Respiratory History: RAD Gastrointestinal History: Reports: None Genitourinary History: Reports: STD, UTI, Recurrent HEAD OF HISTORY History: Reports: , Other (See Below) Other HEAD OF HISTORY History: right ovarian cysts, BV with Musculoskeletal History: Reports: None Neurological History: Reports: Migraines Psychiatric History: Reports: ADHD, Depression Other Psychiatric History: trazadone for sleep Endocrine/Metabolic History: Reports: Other (See Below) Other Endocrine/Metabolic History: impaired glucose tolerance test Hematologic History: Reports: Anemia Immunologic History: Reports: None Oncologic (Cancer) History: Reports: None Dermatologic History: Reports: None - Infectious Disease History Infectious Disease History: Reports: Influenza - Past Surgical History Head Surgeries/Procedures: Reports: None HEENT Surgical History: Reports: Adenoidectomy, Tonsillectomy Female Surgical History: Reports: Section Social & Family History - Family History Family Medical History: Noncontributory Respiratory: Reports: Asthma Psychiatric: Reports: Anxiety, Bipolar - Caffeine Use Caffeine Use: Reports: Coffee, Energy Drinks, Soda, Tea Caffeine Use Comment: occassional caffiene usage - Living Situation & Occupation Living situation: Reports: with Family Occupation: Student ED ROS GENERAL - Review of Systems Review Of Systems: Comprehensive ROS is negative, except as noted in HPI. ED EXAM, GENERAL - Physical Exam Exam: See Below Exam Limited By: No Limitations General Appearance: Alert, WD/WN, No Apparent Distress Eye Exam: Bilateral Eye: EOMI Ears: Normal External Exam Nose: Normal Inspection Throat/Mouth: Normal Inspection Head: Atraumatic, Normocephalic Neck: Normal Inspection, Supple Respiratory/Chest: No Respiratory Distress, Lungs Clear, Normal Breath Sounds, No Accessory Muscle Use, Chest Non-Tender Cardiovascular: Normal Peripheral Pulses, Regular Rate, Rhythm GI/Abdominal: Normal Bowel Sounds, Soft, Pelvis Stable, Guarding (RLQ ), Tender (RLQ positive [place]. ). No: Distended, Rigid, Rebound (Female) Exam: Deferred Rectal (Female) Exam: Deferred Back Exam: Normal Inspection, Full Range of Motion Extremities: Normal Inspection, Normal Range of Motion, Non-Tender, Normal Capillary Refill Neurological: Alert, Oriented, Normal Cognition, No Motor/Sensory Deficits Psychiatric: Normal Affect, Normal Mood Skin Exam: Warm, Dry, Intact, Normal Color, No Rash EKG INTERPRETATION EKG Date: 11/12/19 Time: 01:47 Rhythm: NSR Rate (Beats/Min): 89 [place]: Normal P-Wave: Present QRS: Normal ST-T: Normal QT: Normal Course - Vital Signs Last Recorded V/S: Last Vital Signs Temp 97.7 F 11/12/19 01:23 Pulse 95 11/12/19 01:23 Resp 16 11/12/19 01:23 BP 136/95 H 11/12/19 01:23 Pulse Ox 99 11/12/19 01:23 - Orders/Labs/Meds Orders: Active Orders 24 hr Category Date Time Status EKG Documentation Completion [RC] STAT Care 11/12/19 01:40 Active Labs: Laboratory Tests 11/12/19 11/12/19 11/12/19 Range/Units 01:49 01:49 01:49 WBC 16.8 H (5.0-10.0) 10^3/uL RBC 4.65 (4.2-5.4) 10^6/uL Hgb 13.3 (12.0-16.0) g/dL Hct 39.9 (37.0-47.0) % MCV 85.8 (80-100) fL MCH 28.6 (27.0-34.0) pg MCHC 33.3 (33.0-35.0) g/dL Plt Count 300 D (150-450) 10^3/uL Neut % (Auto) 68.8 (42.2-75.2) % Lymph % (Auto) 22.3 (20.5-50.1) % Gaines % (Auto) 5.4 (2-8) % Eos % (Auto) 3.1 H (1.0-3.0) % Baso % (Auto) 0.4 (0.0-1.0) % Sodium 142 (136-145) mmol/L Potassium 3.4 L (3.5-5.1) mmol/L Chloride 104 (98-107) mmol/L Carbon Dioxide 30 (21-32) mmol/L Anion Gap 11.4 (7-13) mEq/L BUN 13 (7-18) mg/dL Creatinine 0.75 (0.55-1.02) mg/dL Est Cr Clr Drug Dosing 106.77 mL/min Estimated GFR (MDRD) > 60 BUN/Creatinine Ratio 17.3 (No establ ref range) Glucose 88 (74-99) mg/dL Calcium 9.4 (8.5-10.1) mg/dL Total Bilirubin 0.2 (0.2-1.0) mg/dL AST 14 L (15-37) U/L ALT 28 (14-59) U/L Alkaline Phosphatase 86 (46-116) U/L Troponin I < 0.017 (0.000-0.056) ng/mL C-Reactive Protein 1.2 H (0.0-0.9) mg/dL Total Protein 7.0 (6.4-8.2) g/dL Albumin 3.5 (3.4-5.0) g/dL Globulin 3.5 Albumin/Globulin Ratio 1.0 Urine Color (YELLOW) Urine Appearance (CLEAR) Urine pH (5.0-9.0) Ur Specific [place] (1.005-1.030) Urine Protein (NEGATIVE) Urine Glucose (UA) (NEGATIVE) Urine Ketones (NEGATIVE) Urine Occult Blood (NEGATIVE) Urine Nitrite (NEGATIVE) Urine Bilirubin (NEGATIVE) Urine Urobilinogen (0.2-1.0) mg/dL Ur Leukocyte Esterase (NEGATIVE) Urine HCG, Qual 11/12/19 11/12/19 Range/Units 01:54 01:54 WBC (5.0-10.0) 10^3/uL RBC (4.2-5.4) 10^6/uL Hgb (12.0-16.0) g/dL Hct (37.0-47.0) % MCV (80-100) fL MCH (27.0-34.0) pg MCHC (33.0-35.0) g/dL Plt Count (150-450) 10^3/uL Neut % (Auto) (42.2-75.2) % Lymph % (Auto) (20.5-50.1) % Gaines % (Auto) (2-8) % Eos % (Auto) (1.0-3.0) % Baso % (Auto) (0.0-1.0) % Sodium (136-145) mmol/L Potassium (3.5-5.1) mmol/L Chloride (98-107) mmol/L Carbon Dioxide (21-32) mmol/L Anion Gap (7-13) mEq/L BUN (7-18) mg/dL Creatinine (0.55-1.02) mg/dL Est Cr Clr Drug Dosing mL/min Estimated GFR (MDRD) BUN/Creatinine Ratio (No establ ref range) Glucose (74-99) mg/dL Calcium (8.5-10.1) mg/dL Total Bilirubin (0.2-1.0) mg/dL AST (15-37) U/L ALT (14-59) U/L Alkaline Phosphatase (46-116) U/L Troponin I (0.000-0.056) ng/mL C-Reactive Protein (0.0-0.9) mg/dL Total Protein (6.4-8.2) g/dL Albumin (3.4-5.0) g/dL Globulin Albumin/Globulin Ratio Urine Color Yellow (YELLOW) Urine Appearance Slightly cloudy (CLEAR) Urine pH 7.0 (5.0-9.0) Ur Specific [place] 1.025 (1.005-1.030) Urine Protein Negative (NEGATIVE) Urine Glucose (UA) Negative (NEGATIVE) Urine Ketones Negative (NEGATIVE) Urine Occult Blood Negative (NEGATIVE) Urine Nitrite Negative (NEGATIVE) Urine Bilirubin Negative (NEGATIVE) Urine Urobilinogen 0.2 (0.2-1.0) mg/dL Ur Leukocyte Esterase Negative (NEGATIVE) Urine HCG, Qual Negative Meds: Medications Discontinued Medications Generic Name Dose Route Start Last Admin Trade Name Freq PRN Reason Stop Dose Admin Al Hydroxide/Mg Hydroxide 30 ml 11/12/19 01:41 11/12/19 01:45 Gi Cocktail PO 11/12/19 01:42 30 ml ONETIME ONE Administration Iopamidol 100 ml 11/12/19 02:36 11/12/19 02:39 Isovue-300 (61%) IVPUSH 11/12/19 02:37 100 ml ONETIME ONE Administration - Radiology Interpretation Free Text/Narrative:: T scan of the abdomen pelvis with IV contrast per radiology shows no acute findings. Although when I reviewed extemporaneously by myself. I when I look at the ileocecal junction and the ascending colon there is rather large amount of stool volume there. Transverse and descending colon and rectal vault there is not a lot of stool when compared to the ascending colon. - Re-Assessments/Exams Free Text/Narrative Re-Assessment/Exam: 11/12/19 03:16 GI cocktail with resolution of the chest pain. EKG normal. Labs pretty unremarkable other than increasing WBC with a normal differential to WBC of 16.8. This is up from her ER visit just a couple of days ago. UA is negative. CT abd pelvis per radiology negative for acute findings although I am concerned of some increased stool volume in the ascending colon I don't appreciate a lot of stool in the transverse or descending colon or rectal vault. I reviewed the rather unremarkable laboratory evaluation as well as a CT scan. Not really finding any cause of her myriad of complaints today. We will have her try a bottle of magnesium citrate when she gets home today. I will send her home with some Zofran for nausea. Anything new or worse she is to recheck. She is understanding this and her questions are answered. Departure - Departure Time of Disposition: 03:20 Disposition: Home, Self-Care 01 Clinical Impression: Abdominal pain Qualifiers: Abdominal location: left lower quadrant Qualified Code(s): R10.32 - Left lower quadrant pain - Discharge Information Instructions: Constipation, Adult, [id number] Forms: ED Department Discharge Additional Instructions: Home tonight lots of fluids. Drink the bottle of magnesium citrate when you get home at one time. Miralax 1 capful daily until easy smooth bowel movement. Increase by 1 capful every 2 days until easy smooth bowel movement. Day 2 2 capfuls, day 4 3 capfuls etc. Return to the ED if new or worsening symptoms. Zofran 1 tablet every 6 hrs as needed for nausea. RX given to the patient. Follow up with PCP in the next 4-6 days if not improving sooner if worse. Sepsis Event Note (ED) - Focused Exam Vital Signs: Vital Signs Temp Pulse Resp BP Pulse Ox 11/12/19 01:23 97.7 F 95 16 136/95 H 99 - My Orders Last 24 Hours: My Active Orders 11/12/19 01:40 EKG Documentation Completion [RC] STAT - Assessment/Plan Last 24 Hours: My Active Orders 11/12/19 01:40 EKG Documentation Completion [RC] STAT Assessment:: ABd pain with leukocytosis with normal diff, ? constipation of the ascending colon. Plan: Home tonight lots of fluids. Drink the bottle of magnesium citrate when you get home at one time. Miralax 1 capful daily until easy smooth bowel movement. Increase by 1 capful every 2 days until easy smooth bowel movement. Day 2 2 capfuls, day 4 3 capfuls etc. Return to the ED if new or worsening symptoms. Zofran 1 tablet every 6 hrs as needed for nausea. RX given to the patient. Follow up with PCP in the next 4-6 days if not improving sooner if worse.
[2019-11-12] MEDS ORDERED: GI Cocktail Oral Solution 30 ML PO ONE (01:41)
[2019-11-12 02:16] LABS: ANION GAP 11.4 mEq/L (7-13); CHLORIDE,CL 104 mmol/L (98-107); SODIUM,NA 142 mmol/L (136-145)
[2019-11-12] MEDS ORDERED: Iopamidol 612 MG/ML 100 ML Bottle IVPUSH ONE (02:36)
--- NOTE | 2019-11-12 02:46 | CR ---
PROCEDURE INFORMATION: Exam: XR Chest, 2 Views Exam date and time: 11/12/2019 2:03 AM Age: 19 years old Clinical indication: Shortness of breath; Additional info: Cp SOB TECHNIQUE: Imaging protocol: XR of the chest Views: 2 views. COMPARISON: CR Chest 2V 04/21/2019 7:18 PM FINDINGS: Lungs: Unremarkable. No consolidation. Pleural space: Unremarkable. No pleural effusion. No pneumothorax. Heart/Mediastinum: Unremarkable. No cardiomegaly. Bones/joints: Unremarkable. IMPRESSION: No acute findings.
--- NOTE | 2019-11-12 02:56 | CT ---
PROCEDURE INFORMATION: Exam: CT Abdomen And Pelvis With Contrast Exam date and time: 11/12/2019 2:24 AM Age: 19 years old Clinical indication: Nausea and vomiting; Additional info: N/v rlq pain increase wbc ? appy TECHNIQUE: Imaging protocol: Computed tomography of the abdomen and pelvis with intravenous contrast. Radiation optimization: All CT scans at this facility use at least one of these dose optimization techniques: automated exposure control; mA and/or kV adjustment per patient size (includes targeted exams where dose is matched to clinical indication); or iterative reconstruction. Contrast material: ISOVUE 300; Contrast volume: 100 ml; Contrast route: INTRAVENOUS (IV); COMPARISON: No relevant prior studies available. FINDINGS: Liver: Normal. No mass. Gallbladder and bile ducts: Normal. No calcified stones. No ductal dilation. Pancreas: Normal. No ductal dilation. Spleen: Normal. No splenomegaly. Adrenals: Normal. No mass. Kidneys and ureters: Normal. No hydronephrosis. Stomach and bowel: Unremarkable. No obstruction. No mucosal thickening. Appendix: No evidence of appendicitis. Intraperitoneal space: Unremarkable. No free air. No significant fluid collection. Vasculature: Unremarkable. No abdominal aortic aneurysm. Lymph nodes: Unremarkable. No enlarged lymph nodes. Bladder: Unremarkable as visualized. Reproductive: Unremarkable as visualized. Bones/joints: Unremarkable. No acute fracture. Soft tissues: Unremarkable. IMPRESSION: No acute findings.
[2019-11-12] MEDS ORDERED: Magnesium Citrate Solution 296 ML Bottle PO ONE (03:18)
[2019-11-12] MEDS ORDERED: Ondansetron 4 MG/2 ML SDV IV ONE (03:23)
== END 2019-11-12 03:34 | disposition home or self-care (01) ==
LOC: DL.ED 01:04
DX: R10.32 Left lower quadrant pain (principal); R10.31 Right lower quadrant pain; Z91.040 Latex allergy status; Z88.8 Allergy status to other drugs, medicaments and biological substances; Z91.048 Other nonmedicinal substance allergy status
CPT/HCPCS: 36415; 71046; 74177; 80053; 81003; 81025; 84484; 85025; 86140; 93005; 96374; 99285; A9270; J2405; Q9967; 99283

== ENCOUNTER 2020-04-23 21:55 | Emergency (ER) | payer MEDICAID ==
[2020-04-23 22:53] VITALS: PULSE 108
--- NOTE | 2020-04-23 23:10 | EDM.PDOC ---
ED HPI GENERAL MEDICAL PROBLEM - General Chief Complaint: Lower Extremity Injury/Pain Stated Complaint: RIGHT KNEE PAIN/POPPED MORE PAIN Time Seen by Provider: 04/23/20 23:08 Source of Information: Reports: Patient History Limitations: Reports: No Limitations - History of Present Illness INITIAL COMMENTS - FREE TEXT/NARRATIVE: twisted tonight Treatments [employer]: Reports: Acetaminophen, Cold Therapy right knee Pain Score (Numeric/FACES): 7 - Related Data Allergies Allergy/AdvReac Type Severity Reaction Status Date / Time latex Allergy Rash Verified 04/23/20 23:00 lisdexamfetamine dimesylate Allergy Hives Verified 04/23/20 23:00 [From Vyvanse] tape adhesive Allergy Rash Uncoded 11/12/19 01:23 Home Meds: Home Meds . 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: right ovarian cysts, BV with Musculoskeletal History: Reports: None Neurological History: Reports: Migraines Psychiatric History: Reports: ADHD, Depression Other Psychiatric History: trazadone for sleep Endocrine/Metabolic History: Reports: Other (See Below) Other Endocrine/Metabolic History: impaired glucose tolerance test Hematologic History: Reports: Anemia Immunologic History: Reports: None Oncologic (Cancer) History: Reports: None Dermatologic History: Reports: None - Infectious Disease History Infectious Disease History: Reports: Influenza - Past Surgical History Head Surgeries/Procedures: Reports: None HEENT Surgical History: Reports: Adenoidectomy, Tonsillectomy Female Surgical History: Reports: Section Social & Family History - Family History Family Medical History: No Pertinent Family History Respiratory: Reports: Asthma Psychiatric: Reports: Anxiety, Bipolar - Caffeine Use Caffeine Use: Reports: Coffee, Energy Drinks, Soda, Tea Caffeine Use Comment: occassional caffiene usage - Living Situation & Occupation Living situation: Reports: with Family Occupation: Student Review of Systems - Review of Systems Review Of Systems: Comprehensive ROS is negative, except as noted in HPI. ED EXAM, GENERAL - Physical Exam Exam: See Below Exam Limited By: No Limitations General Appearance: Alert, WD/WN, No Apparent Distress Ears: Hearing Grossly Normal Throat/Mouth: Normal Voice, No Airway Compromise Head: Atraumatic Neck: Non-Tender, Full Range of Motion Respiratory/Chest: No Respiratory Distress Cardiovascular: Regular Rate, Rhythm GI/Abdominal: Soft, Non-Tender (Female) Exam: Deferred Rectal (Female) Exam: Deferred Extremities: Other (right knee mild swelling, tender R/P, NV nwl, gait limited to pain) Neurological: Alert, Oriented, Normal Cognition, No Motor/Sensory Deficits Psychiatric: Normal Affect, Normal Mood Skin Exam: Warm, Dry, Normal Color Lymphatic: No Adenopathy Course - Vital Signs Last Recorded V/S: Last Vital Signs Temp 36.6 C 04/23/20 22:53 Pulse 108 H 04/23/20 22:53 Resp 16 04/23/20 22:53 BP 119/76 04/23/20 23:16 Pulse Ox 99 04/23/20 22:53 - Re-Assessments/Exams Free Text/Narrative Re-Assessment/Exam: 04/23/20 23:52 results discussed with pt. Departure - Departure Time of Disposition: 23:52 Disposition: Home, Self-Care 01 Condition: Good Clinical Impression: Sprain of knee - Discharge Information Instructions: Knee Sprain, Adult, [id number] Forms: ED Department Discharge Additional Instructions: 1) wear JANICE for comfort 2) elevate leg as much as possible next 4 days 3) follow up at clinic 4) take tylenol or motrin as needed for discomfort Sepsis Event Note (ED) - Evaluation Sepsis Screening Result: No Definite Risk - Focused Exam Vital Signs: Vital Signs Temp Pulse Resp BP Pulse Ox 04/23/20 23:16 119/76 04/23/20 22:53 36.6 C 108 H 16 140/81 99
[2020-04-23 23:17] VITALS: BP 119/76
--- NOTE | 2020-04-23 23:34 | CR ---
PROCEDURE INFORMATION: Exam: XR Right Knee Exam date and time: 04/23/2020 11:18 PM Age: 19 years old Clinical indication: Other: Twisted; Additional info: Twisted tonight TECHNIQUE: Imaging protocol: XR Right knee. Views: 3 views. COMPARISON: No relevant prior studies available. FINDINGS: Bones/joints: Normal. Soft tissues: Normal. IMPRESSION: No acute findings.
== END 2020-04-23 23:59 | disposition home or self-care (01) ==
LOC: DL.ED 21:55
DX: S83.91XA Sprain of unspecified site of right knee, initial encounter (principal); J45.909 Unspecified asthma, uncomplicated; Z91.040 Latex allergy status; Z88.8 Allergy status to other drugs, medicaments and biological substances; Z91.048 Other nonmedicinal substance allergy status; X58.XXXA Exposure to other specified factors, initial encounter
CPT/HCPCS: 73562-RT; 99282; 99283-25

== ENCOUNTER 2020-05-15 22:16 | Emergency (ER) | payer MEDICAID ==
[2020-05-15 22:39] VITALS: BP 137/91; PULSE 102
--- NOTE | 2020-05-15 23:30 | EDM.PDOC ---
ED HPI GENERAL MEDICAL PROBLEM - General Chief Complaint: Abdominal Pain Stated Complaint: CRAMPS ARE REALLY BAD, NAUSEA Time Seen by Provider: 05/15/20 23:15 Source of Information: Reports: Patient History Limitations: Reports: No Limitations - History of Present Illness INITIAL COMMENTS - FREE TEXT/NARRATIVE: This 19 yo female patient reports to the ED due to lower abdominal pain/cramping for the past 3 days. The patient reports she is sexually active and currently not taking control. The patient reports bilateral lower abdominal cramping that radiates to the center of her lower abdomen then to the lower back. The patient is unsure of possible . Onset Date: 05/12/20 Duration: Constant Location: Reports: Abdomen (lower) Quality: Reports: Other (cramping) Severity: Moderate Improves with: Reports: None Worsens with: Reports: None Context: Reports: Other Lower Abdomen Pain Score (Numeric/FACES): 5 - Related Data Allergies Allergy/AdvReac Type Severity Reaction Status Date / Time latex Allergy Rash Verified 04/23/20 23:00 lisdexamfetamine dimesylate Allergy Hives Verified 04/23/20 23:00 [From Vyvanse] tape adhesive Allergy Rash Uncoded 11/12/19 01:23 Home Meds: Home Meds . 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 SPECIALIST History: Reports: , Other (See Below) Other CHILD SUPPORT SPECIALIST History: right ovarian cysts, BV with Musculoskeletal History: Reports: None Neurological History: Reports: Migraines Psychiatric History: Reports: ADHD, Depression Other Psychiatric History: trazadone for sleep Endocrine/Metabolic History: Reports: Other (See Below) Other Endocrine/Metabolic History: impaired glucose tolerance test Hematologic History: Reports: Anemia Immunologic History: Reports: None Oncologic (Cancer) History: Reports: None Dermatologic History: Reports: None - Infectious Disease History Infectious Disease History: Reports: Influenza - Past Surgical History Head Surgeries/Procedures: Reports: None HEENT Surgical History: Reports: Adenoidectomy, Tonsillectomy GI Surgical History: Reports: None Female Surgical History: Reports: Section Musculoskeletal Surgical History: Reports: None Social & Family History - Family History Family Medical History: No Pertinent Family History Respiratory: Reports: Asthma Psychiatric: Reports: Anxiety, Bipolar - Tobacco Use Tobacco Use Status *Q: Current Every Day Tobacco User Years of Tobacco use: 5 Packs/Tins Daily: 0.5 - Caffeine Use Caffeine Use: Reports: None Caffeine Use Comment: occassional caffiene usage - Recreational Drug Use Recreational Drug Use: No - Living Situation & Occupation Living situation: Reports: with Family Occupation: Student ED ROS GENERAL - Review of Systems Review Of Systems: Comprehensive ROS is negative, except as noted in HPI. ED EXAM, GI/ABD - Physical Exam Exam: See Below Exam Limited By: No Limitations General Appearance: Alert, WD/WN Eyes: Bilateral: Normal Appearance, EOMI Ears: Normal External Exam Nose: Normal Inspection, Normal Mucosa, No Blood Throat/Mouth: Normal Inspection, Normal Lips, Normal Teeth, Normal Gums, Normal Oropharynx, Normal Voice, No Airway Compromise Head: Atraumatic, Normocephalic Neck: Normal Inspection, Supple, Non-Tender, Full Range of Motion Respiratory/Chest: No Respiratory Distress, Lungs Clear, Normal Breath Sounds, No Accessory Muscle Use, Chest Non-Tender Cardiovascular: Normal Peripheral Pulses, Regular Rate, Rhythm, No Edema, No Gallop, No JVD, No Murmur, No Rub GI/Abdominal Exam: Normal Bowel Sounds, No Organomegaly, No Distention, No Abnormal Bruit, No Mass, Pelvis Stable, Tender (lower abdomen) (Female) Exam: Deferred Rectal (Female) Exam: Deferred Back Exam: Normal Inspection, Full Range of Motion, NT Extremities: Normal Inspection, Normal Range of Motion, Non-Tender, Normal Capillary Refill, No Pedal Edema Neurological: Alert, Oriented, CN II-XII Intact, Normal Cognition, Normal Gait, Normal Reflexes, No Motor/Sensory Deficits Psychiatric: Normal Affect, Normal Mood Skin Exam: Warm, Dry, Intact, Normal Color, No Rash Lymphatic: No Adenopathy Course - Vital Signs Last Recorded V/S: Last Vital Signs Temp 36.4 C 05/15/20 22:24 Pulse 102 H 05/15/20 22:24 Resp 20 05/15/20 22:24 BP 137/91 H 05/15/20 22:24 Pulse Ox 98 01/08/21 22:24 - Orders/Labs/Meds Orders: Active Orders 24 hr Category Date Time Status CULTURE URINE [RM] Stat Lab 05/15/20 22:25 Received Labs: Laboratory Tests 05/15/20 05/15/20 05/15/20 Range/Units 22:25 22:25 23:30 WBC 13.6 H (5.0-10.0) 10^3/uL RBC 4.53 (4.2-5.4) 10^6/uL Hgb 13.1 (12.0-16.0) g/dL Hct 38.6 (37.0-47.0) % MCV 85.2 (80-100) fL MCH 28.9 (27.0-34.0) pg MCHC 33.9 (33.0-35.0) g/dL Plt Count 278 (150-450) 10^3/uL Neut % (Auto) 63.3 (42.2-75.2) % Lymph % (Auto) 26.1 (20.5-50.1) % [place] % (Auto) 7.2 (2-8) % Eos % (Auto) 3.1 H (1.0-3.0) % Baso % (Auto) 0.3 (0.0-1.0) % Sodium (136-145) mmol/L Potassium (3.5-5.1) mmol/L Chloride (98-107) mmol/L Carbon Dioxide (21-32) mmol/L Anion Gap (7-13) mEq/L BUN (7-18) mg/dL Creatinine (0.55-1.02) mg/dL Est Cr Clr Drug Dosing mL/min Estimated GFR (MDRD) BUN/Creatinine Ratio (No establ ref range) Glucose (74-99) mg/dL Calcium (8.5-10.1) mg/dL Total Bilirubin (0.2-1.0) mg/dL AST (15-37) U/L ALT (14-59) U/L Alkaline Phosphatase (46-116) U/L Total Protein (6.4-8.2) g/dL Albumin (3.4-5.0) g/dL Globulin Albumin/Globulin Ratio Urine Color [place] (YELLOW) Urine Appearance Slightly cloudy (CLEAR) Urine pH 6.0 (5.0-9.0) Ur Specific [place] >= 1.030 (1.005-1.030) Urine Protein 30 H (NEGATIVE) Urine Glucose (UA) Negative (NEGATIVE) Urine Ketones Negative (NEGATIVE) Urine Occult Blood Large H (NEGATIVE) Urine Nitrite Negative (NEGATIVE) Urine Bilirubin Negative (NEGATIVE) Urine Urobilinogen 0.2 (0.2-1.0) mg/dL Ur Leukocyte Esterase Trace H (NEGATIVE) Urine RBC Semi-packed H /HPF Urine WBC 5-10 H (0-5/HPF) /HPF Ur Epithelial Cells Moderate H (NOT SEEN) /HPF Urine Bacteria Moderate H (0-FEW/HPF) /HPF Urine HCG, Qual Negative 05/15/20 Range/Units 23:30 WBC (5.0-10.0) 10^3/uL RBC (4.2-5.4) 10^6/uL Hgb (12.0-16.0) g/dL Hct (37.0-47.0) % MCV (80-100) fL MCH (27.0-34.0) pg MCHC (33.0-35.0) g/dL Plt Count (150-450) 10^3/uL Neut % (Auto) (42.2-75.2) % Lymph % (Auto) (20.5-50.1) % [place] % (Auto) (2-8) % Eos % (Auto) (1.0-3.0) % Baso % (Auto) (0.0-1.0) % Sodium 141 (136-145) mmol/L Potassium 3.4 L (3.5-5.1) mmol/L Chloride 104 (98-107) mmol/L Carbon Dioxide 27 (21-32) mmol/L Anion Gap 13.4 H (7-13) mEq/L BUN 12 (7-18) mg/dL Creatinine 0.74 (0.55-1.02) mg/dL Est Cr Clr Drug Dosing 108.21 mL/min Estimated GFR (MDRD) > 60 BUN/Creatinine Ratio 16.2 (No establ ref range) Glucose 115 H (74-99) mg/dL Calcium 9.2 (8.5-10.1) mg/dL Total Bilirubin 0.2 (0.2-1.0) mg/dL AST 12 L (15-37) U/L ALT 23 (14-59) U/L Alkaline Phosphatase 101 (46-116) U/L Total Protein 7.4 (6.4-8.2) g/dL Albumin 3.6 (3.4-5.0) g/dL Globulin 3.8 Albumin/Globulin Ratio 0.9 Urine Color (YELLOW) Urine Appearance (CLEAR) Urine pH (5.0-9.0) Ur Specific [place] (1.005-1.030) Urine Protein (NEGATIVE) Urine Glucose (UA) (NEGATIVE) Urine Ketones (NEGATIVE) Urine Occult Blood (NEGATIVE) Urine Nitrite (NEGATIVE) Urine Bilirubin (NEGATIVE) Urine Urobilinogen (0.2-1.0) mg/dL Ur Leukocyte Esterase (NEGATIVE) Urine RBC /HPF Urine WBC (0-5/HPF) /HPF Ur Epithelial Cells (NOT SEEN) /HPF Urine Bacteria (0-FEW/HPF) /HPF Urine HCG, Qual Meds: Medications Discontinued Medications Generic Name Dose Route Start Last Admin Trade Name Freq PRN Reason Stop Dose Admin Iopamidol 100 ml 05/15/20 23:56 05/16/20 00:14 Isovue-300 (61%) IVPUSH 05/15/20 23:57 100 ml ONETIME ONE Administration Departure - Departure Time of Disposition: 01:26 Disposition: Home, Self-Care 01 Condition: Fair Clinical Impression: Severe menstrual cramps - Discharge Information *PRESCRIPTION DRUG MONITORING PROGRAM REVIEWED*: Not Applicable *COPY OF PRESCRIPTION DRUG MONITORING REPORT IN PATIENT ASH: Not Applicable Forms: ED Department Discharge Care Plan Goals: The patient was advised of the examination lab and CT results during the visit. The patient was advised to take Tylenol and ibuprofen as directed for temporary symptom relief. If the patient has any additional symptoms or concerns, the p atient should either return to the emergency department or visit her primary care facility. Sepsis Event Note (ED) - Evaluation Sepsis Screening Result: No Definite Risk - Focused Exam Vital Signs: Vital Signs Temp Pulse Resp BP Pulse Ox 05/15/20 22:24 36.4 C 102 H 20 137/91 H 98 - My Orders Last 24 Hours: My Active Orders 05/15/20 22:25 CULTURE URINE [RM] Stat - Assessment/Plan Last 24 Hours: My Active Orders 05/15/20 22:25 CULTURE URINE [RM] Stat
[2020-05-15 23:53] LABS: ANION GAP 13.4 mEq/L (7-13); CHLORIDE,CL 104 mmol/L (98-107); SODIUM,NA 141 mmol/L (136-145)
[2020-05-15] MEDS ORDERED: Iopamidol 612 MG/ML 100 ML Bottle IVPUSH ONE (23:56)
--- NOTE | 2020-05-16 00:58 | CT ---
PROCEDURE INFORMATION: Exam: CT Abdomen And Pelvis With Contrast Exam date and time: 05/16/2020 12:26 AM Age: 19 years old Clinical indication: Other: Pain; Additional info: Lower abdominal pain (wbc - 13.6) TECHNIQUE: Imaging protocol: Computed tomography of the abdomen and pelvis with intravenous contrast. Radiation optimization: All CT scans at this facility use at least one of these dose optimization techniques: automated exposure control; mA and/or kV adjustment per patient size (includes targeted exams where dose is matched to clinical indication); or iterative reconstruction. Contrast material: [id number]; Contrast volume: 100 ml; Contrast route: INTRAVENOUS (IV); COMPARISON: CT Abdomen Pelvis w Cont 11/12/2019 2:24 AM FINDINGS: Lungs: There is a stable 4 mm pulmonary nodularity seen in the left lung base laterally. Liver: Normal. No mass. Gallbladder and bile ducts: Normal. No calcified stones. No ductal dilation. Pancreas: Normal. No ductal dilation. Spleen: Normal. No splenomegaly. Adrenal glands: Normal. No mass. Kidneys and ureters: Normal. No hydronephrosis. Stomach and bowel: Unremarkable. No obstruction. No mucosal thickening. Appendix: No evidence of appendicitis. Intraperitoneal space: A trace amount of fluid is seen in the cul-de-sac likely commensurate with the patient's age and menstrual status. Vasculature: Unremarkable. No abdominal aortic aneurysm. Lymph nodes: Unremarkable. No enlarged lymph nodes. Urinary bladder: Unremarkable as visualized. Reproductive: Unremarkable as visualized. Bones/joints: Unremarkable. No acute fracture. Soft tissues: Unremarkable. IMPRESSION: 1. There are no acute abdominal findings. 2. Trace amount of fluid present in the cul-de-sac commensurate with the patient's age and menstrual status. 3. Stable 4 mm pulmonary nodularity in the left lung base laterally.If the patient does not have known cancer, follow up should be based on clinical information because of the low risk of cancer in this age group. (Reference: Giovanna) REFERENCES: Giovanna Bolden et al. Guidelines for Management of Incidental Pulmonary Nodules Detected on CT Images: From the Fleischner Society 2017. Radiology. 2017;284(1):228-243.
== END 2020-05-16 01:31 | disposition home or self-care (01) ==
LOC: DL.ED 22:16
DX: N94.6 Dysmenorrhea, unspecified (principal); F17.210 Nicotine dependence, cigarettes, uncomplicated; Z91.040 Latex allergy status; Z88.8 Allergy status to other drugs, medicaments and biological substances
CPT/HCPCS: 36415; 74177; 80053; 81001; 81025; 85025; 87086; 87088; 99283; 99284; Q9967

== ENCOUNTER 2020-09-18 15:25 | Emergency (ER) | payer SELFPAY ==
[2020-09-18 16:01] VITALS: BP 129/76; PULSE 96
[2020-09-18] MEDS ORDERED: Iopamidol 612 MG/ML 100 ML Bottle IVPUSH ONE (16:33)
[2020-09-18 16:41] LABS: ANION GAP 12.8 mEq/L (7-13); CHLORIDE,CL 103 mmol/L (98-107); SODIUM,NA 141 mmol/L (136-145)
--- NOTE | 2020-09-18 16:45 | EDM.PDOC ---
"ED HPI GENERAL MEDICAL PROBLEM - General Chief Complaint: Abdominal Pain Stated Complaint: PAIN LOWER ABDOMEN Time Seen by Provider: 09/18/20 16:30 Source of Information: Reports: Patient History Limitations: Reports: No Limitations - History of Present Illness INITIAL COMMENTS - FREE TEXT/NARRATIVE: This 19 yo female patient reports to the ED due to right lower quadrant abdomi nal pain. The patient reports her symptoms started this morning, but have been getting worse throughout the day. The patient reports she has had an ovarian cyst in the past (13 years old) and has had urinary tract infections. The patient reports she came to the ED right after she got off work. Onset: Today Duration: Constant, Getting Worse Location: Reports: Abdomen (RLQ) Quality: Reports: Ache, Sharp Severity: Moderate Improves with: Reports: None Worsens with: Reports: None Context: Reports: Other Associated Symptoms: Reports: No Other Symptoms Right Lower Abdomen Pain Score (Numeric/FACES): 4 - Related Data Allergies Allergy/AdvReac Type Severity Reaction Status Date / Time latex Allergy Rash Verified 09/18/20 15:50 lisdexamfetamine dimesylate Allergy Hives Verified 09/18/20 15:50 [From Vyvanse] tape adhesive Allergy Rash Uncoded 09/18/20 15:50 Home Meds: Home Meds . 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 RESIDENTIAL INSTALLER History: right ovarian cysts, BV with Musculoskeletal History: Reports: None Neurological History: Reports: Migraines Psychiatric History: Reports: ADHD, Depression Other Psychiatric History: trazadone for sleep Endocrine/Metabolic History: Reports: Other (See Below) Other Endocrine/Metabolic History: impaired glucose tolerance test Hematologic History: Reports: Anemia Immunologic History: Reports: None Oncologic (Cancer) History: Reports: None Dermatologic History: Reports: None - Infectious Disease History Infectious Disease History: Reports: Influenza - Past Surgical History Head Surgeries/Procedures: Reports: None HEENT Surgical History: Reports: Adenoidectomy, Tonsillectomy GI Surgical History: Reports: None Female Surgical History: Reports: Section Musculoskeletal Surgical History: Reports: None Social & Family History - Family History Family Medical History: No Pertinent Family History Respiratory: Reports: Asthma Psychiatric: Reports: Anxiety, Bipolar - Tobacco Use Tobacco Use Status *Q: Current Every Day Tobacco User Years of Tobacco use: 5 Packs/Tins Daily: 0.4 - Caffeine Use Caffeine Use: Reports: None Caffeine Use Comment: occassional caffiene usage - Living Situation & Occupation Living situation: Reports: with Family Occupation: Student ED ROS GENERAL - Review of Systems Review Of Systems: Comprehensive ROS is negative, except as noted in HPI. ED EXAM, GI/ABD - Physical Exam Exam: See Below Exam Limited By: No Limitations General Appearance: Alert, WD/WN, Moderate Distress Eyes: Bilateral: Normal Appearance, EOMI Ears: Normal External Exam, Normal Canal, Hearing Grossly Normal, Normal TMs Nose: Normal Inspection, Normal Mucosa, No Blood Throat/Mouth: Normal Inspection, Normal Lips, Normal Teeth, Normal Gums, Normal Oropharynx, Normal Voice, No Airway Compromise Head: Atraumatic, Normocephalic Neck: Normal Inspection, Supple, Non-Tender, Full Range of Motion Respiratory/Chest: No Respiratory Distress, Lungs Clear, Normal Breath Sounds, No Accessory Muscle Use, Chest Non-Tender Cardiovascular: Normal Peripheral Pulses, Regular Rate, Rhythm, No Edema, No Gallop, No JVD, No Murmur, No Rub GI/Abdominal Exam: Normal Bowel Sounds, No Organomegaly, No Distention, No Abnormal Bruit, No Mass, Pelvis Stable, Tender (RLQ) (Female) Exam: Deferred Rectal (Female) Exam: Deferred Back Exam: Normal Inspection, Full Range of Motion, NT Extremities: Normal Inspection, Normal Range of Motion, Non-Tender, Normal Capillary Refill, No Pedal Edema Neurological: Alert, Oriented, CN II-XII Intact, Normal Cognition, Normal Gait, Normal Reflexes, No Motor/Sensory Deficits Psychiatric: Normal Affect, Normal Mood Skin Exam: Warm, Dry, Intact, Normal Color, No Rash Lymphatic: No Adenopathy Course - Vital Signs Last Recorded V/S: Last Vital Signs Temp 36.6 C 09/18/20 15:37 Pulse 96 09/18/20 15:37 Resp 16 09/18/20 15:37 BP 129/76 09/18/20 15:37 Pulse Ox 99 09/18/20 15:37 - Orders/Labs/Meds Labs: Laboratory Tests 09/18/20 09/18/20 09/18/20 Range/Units 15:38 15:38 16:18 WBC 13.1 H (5.0-10.0) 10^3/uL RBC 4.52 (4.2-5.4) 10^6/uL Hgb 12.9 (12.0-16.0) g/dL Hct 39.1 (37.0-47.0) % MCV 86.5 (80-100) fL MCH 28.5 (27.0-34.0) pg MCHC 33.0 (33.0-35.0) g/dL Plt Count 318 (150-450) 10^3/uL Neut % (Auto) 72.7 (42.2-75.2) % Lymph % (Auto) 19.6 L (20.5-50.1) % [place] % (Auto) 5.4 (2-8) % Eos % (Auto) 2.1 (1.0-3.0) % Baso % (Auto) 0.2 (0.0-1.0) % Sodium (136-145) mmol/L Potassium (3.5-5.1) mmol/L Chloride (98-107) mmol/L Carbon Dioxide (21-32) mmol/L Anion Gap (7-13) mEq/L BUN (7-18) mg/dL Creatinine (0.55-1.02) mg/dL Est Cr Clr Drug Dosing mL/min Estimated GFR (MDRD) BUN/Creatinine Ratio (No establ ref range) Glucose (70-99) mg/dL Calcium (8.5-10.1) mg/dL Total Bilirubin (0.2-1.0) mg/dL AST (15-37) U/L ALT (14-59) U/L Alkaline Phosphatase (46-116) U/L Total Protein (6.4-8.2) g/dL Albumin (3.4-5.0) g/dL Globulin Albumin/Globulin Ratio Urine Color Dark yellow (YELLOW) Urine Appearance Clear (CLEAR) Urine pH 7.0 (5.0-9.0) Ur Specific [place] >= 1.030 (1.005-1.030) Urine Protein Negative (NEGATIVE) Urine Glucose (UA) Negative (NEGATIVE) Urine Ketones Negative (NEGATIVE) Urine Occult Blood Negative (NEGATIVE) Urine Nitrite Negative (NEGATIVE) Urine Bilirubin Negative (NEGATIVE) Urine Urobilinogen 0.2 (0.2-1.0) mg/dL Ur Leukocyte Esterase Negative (NEGATIVE) Urine HCG, Qual Negative 09/18/20 Range/Units 16:18 WBC (5.0-10.0) 10^3/uL RBC (4.2-5.4) 10^6/uL Hgb (12.0-16.0) g/dL Hct (37.0-47.0) % MCV (80-100) fL MCH (27.0-34.0) pg MCHC (33.0-35.0) g/dL Plt Count (150-450) 10^3/uL Neut % (Auto) (42.2-75.2) % Lymph % (Auto) (20.5-50.1) % [place] % (Auto) (2-8) % Eos % (Auto) (1.0-3.0) % Baso % (Auto) (0.0-1.0) % Sodium 141 (136-145) mmol/L Potassium 3.8 (3.5-5.1) mmol/L Chloride 103 (98-107) mmol/L Carbon Dioxide 29 (21-32) mmol/L Anion Gap 12.8 (7-13) mEq/L BUN 16 (7-18) mg/dL Creatinine 0.76 (0.55-1.02) mg/dL Est Cr Clr Drug Dosing 105.36 mL/min Estimated GFR (MDRD) > 60 BUN/Creatinine Ratio 21.1 (No establ ref range) Glucose 98 (70-99) mg/dL Calcium 8.8 (8.5-10.1) mg/dL Total Bilirubin 0.3 (0.2-1.0) mg/dL AST 12 L (15-37) U/L ALT 26 (14-59) U/L Alkaline Phosphatase 92 (46-116) U/L Total Protein 7.3 (6.4-8.2) g/dL Albumin 3.6 (3.4-5.0) g/dL Globulin 3.7 Albumin/Globulin Ratio 1.0 Urine Color (YELLOW) Urine Appearance (CLEAR) Urine pH (5.0-9.0) Ur Specific [place] (1.005-1.030) Urine Protein (NEGATIVE) Urine Glucose (UA) (NEGATIVE) Urine Ketones (NEGATIVE) Urine Occult Blood (NEGATIVE) Urine Nitrite (NEGATIVE) Urine Bilirubin (NEGATIVE) Urine Urobilinogen (0.2-1.0) mg/dL Ur Leukocyte Esterase (NEGATIVE) Urine HCG, Qual Meds: Medications Discontinued Medications Generic Name Dose Route Start Last Admin Trade Name Mildred PRN Reason Stop Dose Admin Iopamidol 100 ml 09/18/20 16:33 09/18/20 16:56 Iopamidol 612 Mg/Ml 100 Ml Bottle IVPUSH 09/18/20 16:34 100 ml ONETIME ONE Administration - Radiology Interpretation Free Text/Narrative:: [facility] Final Radiology Report Call: [phone] assistance Online chat: [email or web address] Name: ALONDRA CLAIRE Age: 19Years F Date: 09/18/2020 SSN: -- : 2000 Study: CT ABDOMEN PELVIS W CONT Requesting Physician: Jose Sanabria Images: [id number] Addl Studies: Provided Clinical History: Right lower quadrant pain Contrast: With Contrast Medium: [id number] Contrast Amount: 100 mL Contrast Method: Intravenous (IV) Page 1 of 2 PROCEDURE INFORMATION: Exam: CT Abdomen And Pelvis With Contrast Exam date and time: 09/18/2020 5:05 PM Age: 19 years old Clinical indication: Other: Wbc 13,100; Additional info: Right lower quadrant pain TECHNIQUE: Imaging protocol: Computed tomography of the abdomen and pelvis with contrast. Radiation optimization: All CT scans at this facility use at least one of these dose optimization techniques: automated exposure control; mA and/or kV adjustment per patient size (includes targeted exams where dose is matched to clinical indication); or iterative reconstruction. Contrast material: [id number]; Contrast volume: 100 ml; Contrast route: INTRAVENOUS (IV); COMPARISON: CT Abdomen Pelvis w Cont 05/16/2020 12:26 AM FINDINGS: Liver: Normal. No mass. Gallbladder and bile ducts: Normal. No calcified stones. No ductal dilation. Pancreas: Normal. No ductal dilation. Spleen: Borderline splenomegaly. Adrenal glands: Normal. No mass. Kidneys and ureters: Normal. No hydronephrosis. Stomach and bowel: Unremarkable. No obstruction. No mucosal thickening. Appendix: The appendix is within normal limits. There is no appendiceal enlargement, periappendiceal inflammatory changes or abscess. Intraperitoneal space: Unremarkable. No free air. No significant fluid collection. Vasculature: Unremarkable. No abdominal aortic aneurysm. Lymph nodes: Unremarkable. No enlarged lymph nodes. ALONDRA CLAIRE | Final Radiology Report CONFIDENTIALITY STATEMENT This report is intended only for use by the referring physician, and only in accordance with law. If you received this in error, call [phone]. Page 2 of 2 Urinary bladder: Unremarkable as visualized. Reproductive: Unremarkable as visualized. Bones/joints: Unremarkable. No acute fracture. Soft tissues: Unremarkable. IMPRESSION: 1. The appendix is within normal limits. There is no appendiceal enlargement, periappendiceal inflammatory changes or abscess. 2. No acute findings. Thank you for allowing us to participate in the care of your patient. Dictated and Authenticated by: Boy Rivera MD 09/18/2020 5:38 PM Central Time ([place] & [place]) Departure - Departure Time of Disposition: 17:42 Disposition: Home, Self-Care 01 Condition: Fair Clinical Impression: Abdominal pain Qualifiers: Abdominal location: left lower quadrant Qualified Code(s): R10.32 - Left lower quadrant pain - Discharge Information *PRESCRIPTION DRUG MONITORING PROGRAM REVIEWED*: Not Applicable *COPY OF PRESCRIPTION DRUG MONITORING REPORT IN PATIENT ASH: Not Applicable Instructions: Abdominal Pain, Adult, [id number] Forms: ED Department Discharge Care Plan Goals: The patient was advised of the examination, lab and CT results during the visit. The patient was encouraged to continue to monitor her symptoms. The patient was encouraged to keep moving. If the patient has any additional symptoms or concerns, the patient should either return to the emergency department or visit her primary care facility. Sepsis Event Note (ED) - Evaluation Sepsis Screening Result: No Definite Risk - Focused Exam Vital Signs: Vital Signs Temp Pulse Resp BP Pulse Ox 09/18/20 15:37 36.6 C 96 16 129/76 99"
--- NOTE | 2020-09-18 17:38 | CT ---
PROCEDURE INFORMATION: Exam: CT Abdomen And Pelvis With Contrast Exam date and time: 09/18/2020 5:05 PM Age: 19 years old Clinical indication: Other: Wbc 13,100; Additional info: Right lower quadrant pain TECHNIQUE: Imaging protocol: Computed tomography of the abdomen and pelvis with contrast. Radiation optimization: All CT scans at this facility use at least one of these dose optimization techniques: automated exposure control; mA and/or kV adjustment per patient size (includes targeted exams where dose is matched to clinical indication); or iterative reconstruction. Contrast material: [id number]; Contrast volume: 100 ml; Contrast route: INTRAVENOUS (IV); COMPARISON: CT Abdomen Pelvis w Cont 05/16/2020 12:26 AM FINDINGS: Liver: Normal. No mass. Gallbladder and bile ducts: Normal. No calcified stones. No ductal dilation. Pancreas: Normal. No ductal dilation. Spleen: Borderline splenomegaly. Adrenal glands: Normal. No mass. Kidneys and ureters: Normal. No hydronephrosis. Stomach and bowel: Unremarkable. No obstruction. No mucosal thickening. Appendix: The appendix is within normal limits. There is no appendiceal enlargement, periappendiceal inflammatory changes or abscess. Intraperitoneal space: Unremarkable. No free air. No significant fluid collection. Vasculature: Unremarkable. No abdominal aortic aneurysm. Lymph nodes: Unremarkable. No enlarged lymph nodes. Urinary bladder: Unremarkable as visualized. Reproductive: Unremarkable as visualized. Bones/joints: Unremarkable. No acute fracture. Soft tissues: Unremarkable. IMPRESSION: 1. The appendix is within normal limits. There is no appendiceal enlargement, periappendiceal inflammatory changes or abscess. 2. No acute findings.
== END 2020-09-18 17:53 | disposition home or self-care (01) ==
LOC: DL.ED 15:25
DX: R10.31 Right lower quadrant pain (principal); Z91.040 Latex allergy status; Z88.8 Allergy status to other drugs, medicaments and biological substances; Z91.048 Other nonmedicinal substance allergy status; Z72.0 Tobacco use
CPT/HCPCS: 36415; 74177; 80053; 81003; 81025; 85025; 99283; 99284-25; Q9967

== ENCOUNTER 2020-10-25 15:21 | Emergency (ER) | payer MEDICAID ==
[2020-10-25 17:36] VITALS: BP 109/79; PULSE 82
--- NOTE | 2020-10-25 18:48 | EDM.PDOC ---
ED HPI GENERAL MEDICAL PROBLEM - General Chief Complaint: Upper Extremity Injury/Pain Stated Complaint: RIGHT HAND, HARD TO TWIST WRIST & MAKE A FIST Time Seen by Provider: 10/25/20 16:00 - History of Present Illness INITIAL COMMENTS - FREE TEXT/NARRATIVE: Chani is a 19-year-old woman who presents with pain and stiffness in her right hand. 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 She has not been diagnosed previously with carpal tunnel syndrome. She knows of no accident or event which elicited this. Right Hand Pain Score (Numeric/FACES): 6 - Related Data Allergies Allergy/AdvReac Type Severity Reaction Status Date / Time latex Allergy Rash Verified 10/25/20 17:36 lisdexamfetamine dimesylate Allergy Hives Verified 10/25/20 17:36 [From Vyvanse] tape adhesive Allergy Rash Uncoded 10/25/20 17:36 Home Meds: Home Meds . 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: right ovarian cysts, BV with Musculoskeletal History: Reports: None Neurological History: Reports: Migraines Psychiatric History: Reports: ADHD, Depression Other Psychiatric History: trazadone for sleep Endocrine/Metabolic History: Reports: Other (See Below) Other Endocrine/Metabolic History: impaired glucose tolerance test Hematologic History: Reports: Anemia Immunologic History: Reports: None Oncologic (Cancer) History: Reports: None Dermatologic History: Reports: None - Infectious Disease History Infectious Disease History: Reports: Influenza - Past Surgical History Head Surgeries/Procedures: Reports: None HEENT Surgical History: Reports: Adenoidectomy, Tonsillectomy GI Surgical History: Reports: None Female Surgical History: Reports: Section Musculoskeletal Surgical History: Reports: None Social & Family History - Family History Family Medical History: No Pertinent Family History Respiratory: Reports: Asthma Psychiatric: Reports: Anxiety, Bipolar - Tobacco Use Tobacco Use Status *Q: Current Every Day Tobacco User Years of Tobacco use: 5 Packs/Tins Daily: 1 Second Hand Smoke Exposure: No - Caffeine Use Caffeine Use: Reports: Coffee Caffeine Use Comment: occassional caffiene usage - Recreational Drug Use Recreational Drug Use: No - Living Situation & Occupation Living situation: Reports: with Family Occupation: Student Review of Systems - Review of Systems Review Of Systems: Comprehensive ROS is negative, except as noted in HPI. ED EXAM, GENERAL - Physical Exam Exam: See Below Free Text/Narrative:: General: Patient is a 19-year-old woman in no acute distress Right hand: There is no ecchymosis or erythema involving any portion of her hand. She apparently has good passive range of motion noted with exam. Three-view x-ray of the hand does not show any acute fracture or dislocation Course - Vital Signs Last Recorded V/S: Last Vital Signs Temp 95.2 F L 10/25/20 17:31 Pulse 82 10/25/20 17:31 Resp 16 10/25/20 17:31 BP 109/79 10/25/20 17:31 Pulse Ox 100 10/25/20 17:31 Departure - Departure Time of Disposition: 18:48 Disposition: Home, Self-Care 01 Clinical Impression: Right hand pain - Discharge Information *PRESCRIPTION DRUG MONITORING PROGRAM REVIEWED*: Not Applicable *COPY OF PRESCRIPTION DRUG MONITORING REPORT IN PATIENT ASH: Not Applicable Instructions: Hand Pain Forms: ED Department Discharge Sepsis Event Note (ED) - Evaluation Sepsis Screening Result: No Definite Risk - Problem List & Annotations (1) Right hand pain SNOMED Code(s): 55594439 Code(s): M79.641 - PAIN IN RIGHT HAND Status: Acute - Problem List Review Problem List Initiated/Reviewed/Updated: Yes - Assessment/Plan Assessment:: 1. Right hand pain, possibly either referred pain from nerve impingement, or interosseous tendinitis Plan: 1. I encouraged her to follow-up with her primary physician as well as consider referral to occupational therapy for treatment of this
--- NOTE | 2020-10-25 20:10 | CR ---
PROCEDURE INFORMATION: Exam: XR Right Hand Exam date and time: 10/25/2020 6:07 PM Age: 19 years old Clinical indication: Other: Pain--no known trauma; Additional info: Pain in R hand TECHNIQUE: Imaging protocol: XR Right hand. Views: 3 or more views. COMPARISON: No relevant prior studies available. FINDINGS: Bones/joints: Normal. Soft tissues: Normal. IMPRESSION: No acute findings.
== END 2020-10-25 18:59 | disposition home or self-care (01) ==
LOC: DL.ED 15:21
DX: M79.641 Pain in right hand (principal); Z91.040 Latex allergy status; Z91.048 Other nonmedicinal substance allergy status; Z88.8 Allergy status to other drugs, medicaments and biological substances; Z72.0 Tobacco use
CPT/HCPCS: 73130-RT; 99282; 99283

== ENCOUNTER 2020-12-25 13:55 | Emergency (ER) | payer MEDICAID ==
--- NOTE | 2020-12-25 18:22 | EDM.PDOC ---
<Jose Sanabria M - Last Filed: 12/25/20 18:16> ED HPI GENERAL MEDICAL PROBLEM - General Chief Complaint: Abdominal Pain Stated Complaint: 6 WKS / CRAMING AND PAIN Time Seen by Provider: 12/25/20 17:55 Source of Information: Reports: Patient History Limitations: Reports: No Limitations - History of Present Illness INITIAL COMMENTS - FREE TEXT/NARRATIVE: This 20 yo female patient reports to the ED with lower abdominal cramping over the past 3 days which has gotten worse. The patient reports she is currently approximately 6 weeks into her current . The patient reports she has an OB appointment with Dr. Sheikh on 01/05/21. Onset: Unknown/Unsure Duration: Constant Location: Reports: Abdomen (lower abdominal cramping) Quality: Reports: Ache Lower Abdomen Pain Score (Numeric/FACES): 5 - Related Data Allergies Allergy/AdvReac Type Severity Reaction Status Date / Time latex Allergy Rash Verified 12/25/20 17:58 lisdexamfetamine dimesylate Allergy Hives Verified 12/25/20 17:58 [From Vyvanse] tape adhesive Allergy Rash Uncoded 12/25/20 17:58 Home Meds: Home Meds . 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, BV with Musculoskeletal History: Reports: None Neurological History: Reports: Migraines Psychiatric History: Reports: ADHD, Depression Other Psychiatric History: trazadone for sleep Endocrine/Metabolic History: Reports: Other (See Below) Other Endocrine/Metabolic History: impaired glucose tolerance test Hematologic History: Reports: Anemia Immunologic History: Reports: None Oncologic (Cancer) History: Reports: None Dermatologic History: Reports: None - Infectious Disease History Infectious Disease History: Reports: Influenza - Past Surgical History Head Surgeries/Procedures: Reports: None HEENT Surgical History: Reports: Adenoidectomy, Tonsillectomy GI Surgical History: Reports: None Female Surgical History: Reports: Section Musculoskeletal Surgical History: Reports: None Social & Family History - Family History Family Medical History: No Pertinent Family History Respiratory: Reports: Asthma Psychiatric: Reports: Anxiety, Bipolar - Tobacco Use Tobacco Use Status *Q: Current Every Day Tobacco User Years of Tobacco use: 6 Packs/Tins Daily: 0.2 - Caffeine Use Caffeine Use: Reports: Coffee Caffeine Use Comment: occassional caffiene usage - Recreational Drug Use Recreational Drug Use: No - Living Situation & Occupation Living situation: Reports: with Family Occupation: Student ED ROS GENERAL - Review of Systems Review Of Systems: Comprehensive ROS is negative, except as noted in HPI. ED EXAM, GI/ABD - Physical Exam Exam: See Below Exam Limited By: No Limitations General Appearance: Alert, WD/WN, No Apparent Distress Eyes: Bilateral: Normal Appearance, EOMI Ears: Normal External Exam, Normal Canal, Hearing Grossly Normal, Normal TMs Nose: Normal Inspection, Normal Mucosa, No Blood Throat/Mouth: Normal Inspection, Normal Lips, Normal Teeth, Normal Gums, Normal Oropharynx, Normal Voice, No Airway Compromise Head: Atraumatic, Normocephalic Neck: Normal Inspection, Supple, Non-Tender, Full Range of Motion Respiratory/Chest: No Respiratory Distress, Lungs Clear, Normal Breath Sounds, No Accessory Muscle Use, Chest Non-Tender Cardiovascular: Normal Peripheral Pulses, Regular Rate, Rhythm, No Edema, No Gallop, No JVD, No Murmur, No Rub GI/Abdominal Exam: Normal Bowel Sounds, Soft, Non-Tender, No Organomegaly, No Distention, No Abnormal Bruit, No Mass, Pelvis Stable (Female) Exam: Deferred Rectal (Female) Exam: Deferred Back Exam: Normal Inspection, Full Range of Motion, NT Extremities: Normal Inspection, Normal Range of Motion, Non-Tender, Normal Capillary Refill, No Pedal Edema Neurological: Alert, Oriented, CN II-XII Intact, Normal Cognition, Normal Gait, Normal Reflexes, No Motor/Sensory Deficits Psychiatric: Normal Affect, Normal Mood Skin Exam: Warm, Dry, Intact, Normal Color, No Rash Lymphatic: No Adenopathy Departure - Departure Disposition: Home, Self-Care 01 Clinical Impression: Threatened - Discharge Information Referrals: Toney Sheikh MD [Physician] - Forms: ED Department Discharge Care Plan Goals: Home, rest, adequate fluids, pelvic rest, no sex for 10 days, no lifting over 10 pounds for 10 days return as needed for any worsening condition <Masoud Ray - Last Filed: 12/25/20 21:04> Course - Vital Signs Text/Narrative:: The patient was endorsed to me at change of shift, is a 20-year-old female who presents with a 2-day history of lower abdominal cramping, the patient reports that she is 6 weeks IUP she is a G4, she denies any vaginal bleeding does report that she has had some mucousy discharge, and secondary to this she presents emergency department for further evaluation. Her work-up today was reassuring, she did have a pelvic ultrasound which shows "impression: Single intrauterine embryo with estimated gestational age of 6 weeks 0 days based on CRL, concordant with starting dating. No heart tones documented, but this may be due to very early gestational age. Follow-up is recommended in 7 to 10 days to confirm viability." The patient will be discharged home and encouraged to follow-up outpatient with her OB in 10 days as previously scheduled, the patient will be encouraged to return to the emergency department should she have any worsening conditions Last Recorded V/S: Last Vital Signs Temp 97.3 F 12/25/20 17:49 Pulse 87 12/25/20 17:49 Resp 16 12/25/20 17:49 BP 129/72 12/25/20 17:49 Pulse Ox 100 12/25/20 17:49 - Orders/Labs/Meds Orders: Active Orders 24 hr Category Date Time Status CHLAMYDIA AND GONORRHEA BY [facility] Stat Lab 12/25/20 17:52 Received Labs: Laboratory Tests 12/25/20 12/25/20 12/25/20 Range/Units 17:52 18:20 18:40 WBC 13.2 H (5.0-10.0) 10^3/uL RBC 4.76 (4.2-5.4) 10^6/uL Hgb 13.8 (12.0-16.0) g/dL Hct 41.5 (37.0-47.0) % MCV 87.2 (80-100) fL MCH 29.0 (27.0-34.0) pg MCHC 33.3 (33.0-35.0) g/dL Plt Count 242 D (150-450) 10^3/uL Neut % (Auto) 72.0 (42.2-75.2) % Lymph % (Auto) 19.9 L (20.5-50.1) % [place] % (Auto) 5.5 (2-8) % Eos % (Auto) 2.4 (1.0-3.0) % Baso % (Auto) 0.2 (0.0-1.0) % Sodium 137 (136-145) mmol/L Potassium 3.9 (3.5-5.1) mmol/L Chloride 103 (98-107) mmol/L Carbon Dioxide 22 (21-32) mmol/L Anion Gap 15.9 H (7-13) mEq/L BUN 15 (7-18) mg/dL Creatinine 0.65 (0.55-1.02) mg/dL Est Cr Clr Drug Dosing 122.16 mL/min Estimated GFR (MDRD) > 60 BUN/Creatinine Ratio 23.1 (No establ ref range) Glucose 68 L (70-99) mg/dL Calcium 8.7 (8.5-10.1) mg/dL Total Bilirubin 0.3 (0.2-1.0) mg/dL AST 16 (15-37) U/L ALT 26 (14-59) U/L Alkaline Phosphatase 77 (46-116) U/L Total Protein 7.5 (6.4-8.2) g/dL Albumin 3.6 (3.4-5.0) g/dL Globulin 3.9 Albumin/Globulin Ratio 0.9 HCG, Quant (0-6) mIU/mL Urine Color Yellow (YELLOW) Urine Appearance Clear (CLEAR) Urine pH 5.5 (5.0-9.0) Ur Specific [place] >= 1.030 (1.005-1.030) Urine Protein Negative (NEGATIVE) Urine Glucose (UA) Negative (NEGATIVE) Urine Ketones Negative (NEGATIVE) Urine Occult Blood Negative (NEGATIVE) Urine Nitrite Negative (NEGATIVE) Urine Bilirubin Negative (NEGATIVE) Urine Urobilinogen 0.2 (0.2-1.0) mg/dL Ur Leukocyte Esterase Negative (NEGATIVE) 12/25/20 Range/Units 18:40 WBC (5.0-10.0) 10^3/uL RBC (4.2-5.4) 10^6/uL Hgb (12.0-16.0) g/dL Hct (37.0-47.0) % MCV (80-100) fL MCH (27.0-34.0) pg MCHC (33.0-35.0) g/dL Plt Count (150-450) 10^3/uL Neut % (Auto) (42.2-75.2) % Lymph % (Auto) (20.5-50.1) % [place] % (Auto) (2-8) % Eos % (Auto) (1.0-3.0) % Baso % (Auto) (0.0-1.0) % Sodium (136-145) mmol/L Potassium (3.5-5.1) mmol/L Chloride (98-107) mmol/L Carbon Dioxide (21-32) mmol/L Anion Gap (7-13) mEq/L BUN (7-18) mg/dL Creatinine (0.55-1.02) mg/dL Est Cr Clr Drug Dosing mL/min Estimated GFR (MDRD) BUN/Creatinine Ratio (No establ ref range) Glucose (70-99) mg/dL Calcium (8.5-10.1) mg/dL Total Bilirubin (0.2-1.0) mg/dL AST (15-37) U/L ALT (14-59) U/L Alkaline Phosphatase (46-116) U/L Total Protein (6.4-8.2) g/dL Albumin (3.4-5.0) g/dL Globulin Albumin/Globulin Ratio HCG, Quant 5328 H (0-6) mIU/mL Urine Color (YELLOW) Urine Appearance (CLEAR) Urine pH (5.0-9.0) Ur Specific [place] (1.005-1.030) Urine Protein (NEGATIVE) Urine Glucose (UA) (NEGATIVE) Urine Ketones (NEGATIVE) Urine Occult Blood (NEGATIVE) Urine Nitrite (NEGATIVE) Urine Bilirubin (NEGATIVE) Urine Urobilinogen (0.2-1.0) mg/dL Ur Leukocyte Esterase (NEGATIVE) Departure - Departure Time of Disposition: 21:03 Condition: Good - Discharge Information *PRESCRIPTION DRUG MONITORING PROGRAM REVIEWED*: No *COPY OF PRESCRIPTION DRUG MONITORING REPORT IN PATIENT ASH: No Sepsis Event Note (ED) - Focused Exam Vital Signs: Vital Signs Temp Pulse Resp BP Pulse Ox 12/25/20 17:49 97.3 F 87 16 129/72 100 - My Orders Last 24 Hours: My Active Orders 12/25/20 17:52 CHLAMYDIA AND GONORRHEA BY TMA Stat - Assessment/Plan Last 24 Hours: My Active Orders 12/25/20 17:52 CHLAMYDIA AND GONORRHEA BY TMA Stat
[2020-12-25 19:30] LABS: ANION GAP 15.9 mEq/L (7-13); CHLORIDE,CL 103 mmol/L (98-107); SODIUM,NA 137 mmol/L (136-145)
--- NOTE | 2020-12-25 20:59 | US ---
PROCEDURE INFORMATION: Exam: US First Trimester, Transabdominal with transvaginal Exam date and time: 12/25/2020 7:44 PM Age: 20 years old Clinical indication: complicated by abdominal or pelvic pain; Lower; First trimester; Gestational age or lmp: 5 wks, 6 days; ; Additional info: Vag bleeding/preg no prior US TECHNIQUE: Imaging protocol: Real-time transabdominal and transvaginal obstetrical ultrasound of the maternal pelvis and a first trimester , less than 14 weeks 0 days, with image documentation. COMPARISON: CT Abdomen Pelvis w Cont 05/16/2020 12:26 AM FINDINGS: Gestation: Intrauterine gestation. Yolk sac is not visualized. Embryonic/ heart rate: Unable to document. Extra-embryonic membranes/Placenta: Too early to evaluate. Amniotic fluid: Too early to evaluate. BIOMETRY: Gestational age (AUA): 6 weeks 0 days based on CRL of 2.8 mm. MATERNAL: Uterus: Unremarkable. Cervix: Unremarkable. Right adnexa: Unremarkable. Left adnexa: Unremarkable. Intraperitoneal space: No intraperitoneal free fluid. IMPRESSION: Single intrauterine embryo with estimated gestational age 6 weeks 0 days based on CRL, concordant with stated dating. No heart tones documented, but this may be due to very early gestational age. Follow-up is recommended in 7-10 days to confirm viability.
[2020-12-25 21:24] VITALS: BP 97/59; PULSE 84
[2020-12-29 11:46] LABS: C.TRACHOMATIS BY TMA Negative (Negative); N.GONORRHOEAE BY TMA Negative (Negative)
== END 2020-12-25 21:24 | disposition home or self-care (01) ==
LOC: DL.ED 13:55
DX: O20.0 Threatened abortion (principal); Z3A.01 Less than 8 weeks gestation of pregnancy; Z91.040 Latex allergy status; Z88.8 Allergy status to other drugs, medicaments and biological substances; Z72.0 Tobacco use
CPT/HCPCS: 36415; 76815; 76817; 80053; 81003; 84702; 85025; 87491; 87591; 99283; 99284-25

== ENCOUNTER 2021-02-08 05:56 | Emergency (ER) | payer MEDICAID ==
[2021-02-08 06:13] VITALS: BP 128/81; PULSE 102
[2021-02-08] MEDS ORDERED: Ketorolac 30 MG/ML SDV IVPUSH ONE (06:19)
[2021-02-08] MEDS ORDERED: Ondansetron 4 MG/2 ML SDV IV ONE (06:21)
[2021-02-08 06:46] LABS: ANION GAP 14.9 mEq/L (7-13); CHLORIDE,CL 104 mmol/L (98-107); SODIUM,NA 139 mmol/L (136-145)
--- NOTE | 2021-02-08 07:34 | EDM.PDOC ---
"ED HPI GENERAL MEDICAL PROBLEM - General Source of Information: Reports: Patient History Limitations: Reports: No Limitations Uterine Pain Score (Numeric/FACES): 8 - General Chief Complaint: [employer] Problem Stated Complaint: MISCARRYING, THINGS ARE FLUSHING OUT, 9.5 WEEKS Time Seen by Provider: 02/08/21 07:00 - History of Present Illness INITIAL COMMENTS - FREE TEXT/NARRATIVE: 20 y/o F reports to the er today for heavy vaginal bleeding. Pt reports the bleeding began on Monday night with very light bleeding. As the bleeding progressed the pt began having cramping and pain in her pelvis for which she began taking tylenol, motrin and midol. The bleeding and cramping became so severe that the pat had to come to the ER this morning. She reports being 8 week with a positive test on Dec 21. .She reports not needing Rogam (Daniel Amor) - Related Data Allergies Allergy/AdvReac Type Severity Reaction Status Date / Time latex Allergy Rash Verified 02/08/21 06:04 lisdexamfetamine dimesylate Allergy Hives Verified 02/08/21 06:04 [From Vyvanse] tape adhesive Allergy Rash Uncoded 02/08/21 06:04 Home Meds: Home Meds . [No Known Home Meds] 06/14/19 [History] Past Medical History - Past Health History Medical/Surgical History: Denies Medical/Surgical History HEENT History: Reports: None Cardiovascular History: Reports: None Respiratory History: Reports: Other (See Below) Other Respiratory History: RAD Gastrointestinal History: Reports: None Genitourinary History: Reports: STD, UTI, Recurrent [employer]GER History: Reports: , Other (See Below) Other [employer]GER History: right ovarian cysts, BV with Musculoskeletal History: Reports: None Neurological History: Reports: Migraines Psychiatric History: Reports: ADHD, Depression Other Psychiatric History: trazadone for sleep Endocrine/Metabolic History: Reports: Other (See Below) Other Endocrine/Metabolic History: impaired glucose tolerance test Hematologic History: Reports: Anemia Immunologic History: Reports: None Oncologic (Cancer) History: Reports: None Dermatologic History: Reports: None - Infectious Disease History Infectious Disease History: Reports: Influenza - Past Surgical History Head Surgeries/Procedures: Reports: None HEENT Surgical History: Reports: Adenoidectomy, Tonsillectomy GI Surgical History: Reports: None Female Surgical History: Reports: Section Musculoskeletal Surgical History: Reports: None Social & Family History - Family History Family Medical History: No Pertinent Family History Respiratory: Reports: Asthma Psychiatric: Reports: Anxiety, Bipolar - Tobacco Use Tobacco Use Status *Q: Heavy Tobacco User Years of Tobacco use: 5 Packs/Tins Daily: 0.7 - Caffeine Use Caffeine Use: Reports: Coffee Caffeine Use Comment: occassional caffiene usage - Recreational Drug Use Recreational Drug Use: No - Living Situation & Occupation Living situation: Reports: with Family Occupation: Student ED ROS GENERAL - Review of Systems Review Of Systems: Comprehensive ROS is negative, except as noted in HPI. ED EXAM - Physical Exam Exam: See Below Exam Limited By: No Limitations General Appearance: Alert, No Apparent Distress Eye Exam: Bilateral Eye: PERRL Throat/Mouth: Normal Inspection, Normal Lips, Normal Teeth, Normal Gums, Normal Oropharynx, Normal Voice, No Airway Compromise Head: Atraumatic, Normocephalic Neck: Normal Inspection, Supple, Non-Tender, Full Range of Motion Respiratory/Chest: No Respiratory Distress, Lungs Clear, Normal Breath Sounds, No Accessory Muscle Use, Chest Non-Tender Cardiovascular: Normal Peripheral Pulses, Regular Rate, Rhythm, No Edema, No Gallop, No JVD, No Murmur, No Rub GI/Abdominal Exam: Soft, Tender (some tenderness over the supra pubic region) Rectal Exam: Deferred (Female) Exam: Other (During physical exam the pt passed the fetus. a pelic exam was deferred and an ultrasound ordered) Back Exam: Normal Inspection, Full Range of Motion, NT Extremities: Normal Inspection, Normal Range of Motion, Non-Tender, Normal Capillary Refill, No Pedal Edema Neurological: Alert, Oriented Skin Exam: Warm, Dry, Intact Course - Vital Signs Last Recorded V/S: Last Vital Signs Temp 97.2 F 02/08/21 06:05 Pulse 102 H 02/08/21 06:05 Resp 16 02/08/21 06:05 BP 128/81 02/08/21 06:05 Pulse Ox 97 02/08/21 06:05 - Orders/Labs/Meds Orders: Active Orders 24 hr Category Date Time Status UA RFX MIKE AND CULT IF INDIC [URIN] Stat Lab 02/08/21 06:16 Ordered Labs: Laboratory Tests 02/08/21 02/08/21 02/08/21 Range/Units 06:20 06:20 06:20 WBC 15.0 H (5.0-10.0) 10^3/uL RBC 4.63 (4.2-5.4) 10^6/uL Hgb 13.6 (12.0-16.0) g/dL Hct 39.7 (37.0-47.0) % MCV 85.7 (80-100) fL MCH 29.4 (27.0-34.0) pg MCHC 34.3 (33.0-35.0) g/dL Plt Count 209 (150-450) 10^3/uL Neut % (Auto) 76.9 H (42.2-75.2) % Lymph % (Auto) 15.2 L (20.5-50.1) % [place] % (Auto) 6.0 (2-8) % Eos % (Auto) 1.7 (1.0-3.0) % Baso % (Auto) 0.2 (0.0-1.0) % Sodium 139 (136-145) mmol/L Potassium 3.9 (3.5-5.1) mmol/L Chloride 104 (98-107) mmol/L Carbon Dioxide 24 (21-32) mmol/L Anion Gap 14.9 H (7-13) mEq/L BUN 10 (7-18) mg/dL Creatinine 0.66 (0.55-1.02) mg/dL Est Cr Clr Drug Dosing 120.31 mL/min Estimated GFR (MDRD) > 60 BUN/Creatinine Ratio 15.2 (No establ ref range) Glucose 103 H (70-99) mg/dL Calcium 9.2 (8.5-10.1) mg/dL Total Bilirubin 0.3 (0.2-1.0) mg/dL AST 11 L (15-37) U/L ALT 16 (14-59) U/L Alkaline Phosphatase 80 (46-116) U/L Total Protein 7.4 (6.4-8.2) g/dL Albumin 3.4 (3.4-5.0) g/dL Globulin 4.0 Albumin/Globulin Ratio 0.9 HCG, Quant 2084 H (0-6) mIU/mL Meds: Medications Discontinued Medications Generic Name Dose Route Start Last Admin Trade Name Mildred PRN Reason Stop Dose Admin Sodium Chloride 1,000 mls @ 999 mls/hr 02/08/21 07:38 02/08/21 07:44 Normal Saline IV 02/08/21 08:38 999 mls/hr .BOLUS ONE Administration Ketorolac Tromethamine 30 mg 02/08/21 06:19 02/08/21 06:24 Ketorolac 30 Mg/Ml Sdv IVPUSH 02/08/21 06:20 30 mg ONETIME ONE Administration Ondansetron HCl 4 mg 02/08/21 06:21 02/08/21 06:24 Ondansetron 4 Mg/2 Ml Sdv IV 02/08/21 06:22 4 mg ONETIME ONE Administration - Radiology Interpretation Free Text/Narrative:: [facility] Final Radiology Report Call: [phone] assistance Online chat: [email or web address] Name: ALONDRA CLAIRE Age: 20Years F Date: 02/08/2021 SSN: -- : 2000 Study: US OB LTD 1 OR MORE FETUS Requesting Physician: Shyla Pelaez Images: 20 Addl Studies: Provided Clinical History: 9 weeks, bleeding, cramping Contrast: Without Contrast Medium: Contrast Amount: Contrast Method: Page 1 of 2 PROCEDURE INFORMATION: Exam: US , Limited Exam date and time: 02/08/2021 6:54 AM Age: 20 years old Clinical indication: Lmp or gestational age (in weeks): 9w; Antepartum complications; Bleeding; ; Additional info: 9 weeks, bleeding, cramping; passed fetus in ER, looking for retained products TECHNIQUE: Imaging protocol: Real-time ultrasound of the maternal uterus with image documentation. Exam focused on the clinical indication. COMPARISON: US OB Transvaginal 12/25/2020 7:44 PM FINDINGS: Gestation: No intrauterine gestational sac. MATERNAL: Uterus: The endometrium measures up to 2.2 cm in thickness. Right adnexa: The right ovary measures 2.0 x 2.4 x 1.3 cm and appears unremarkable. Left adnexa: The left ovary measures 2.3 x 3.1 x 2.0 cm and appears unremarkable. Intraperitoneal space: No demonstrated free fluid. IMPRESSION: No intrauterine gestational sac with the endometrium measuring up to 2.2 cm in thickness, suggesting retained products. Thank you for allowing us to participate in the care of your patient. ALONDRA CLAIRE | Final Radiology Report CONFIDENTIALITY STATEMENT This report is intended only for use by the referring physician, and only in accordance with law. If you received this in error, call [phone]. Page 2 of 2 Dictated and Authenticated by: Virgil Lyn MD 02/08/2021 7:43 AM Central Time ([place] & [place]) (Galdino Ding) - Re-Assessments/Exams Free Text/Narrative Re-Assessment/Exam: 02/08/21 08:47 The ultrasound shows retained products of conception. I have advised the pt that she will continue to bleed while her body tries to expel the retained products. I have advised her that if she begins soaking through more than one large pad per hour for 2 hours or if she develops fever of feeling of faintness to return to the ER. (Daniel Amor) Departure - Departure Time of Disposition: 08:54 Condition: Fair - Discharge Information *PRESCRIPTION DRUG MONITORING PROGRAM REVIEWED*: Not Applicable *COPY OF PRESCRIPTION DRUG MONITORING REPORT IN PATIENT ASH: Not Applicable - Departure Disposition: Home, Self-Care 01 Clinical Impression: Spontaneous - Discharge Information Instructions: Miscarriage, [id number] Forms: ED Department Discharge Additional Instructions: Contact Dr. Sheikh your OB as soon as you leave here so that you can have close follow up. If you soak through more than 1 large pad an hour for 2 hours or if you develop faintness or fever return to the ER. If any other symptoms or concerns develop contact your primary care facility or return to the ER. Sepsis Event Note (ED) - Evaluation Sepsis Screening Result: No Definite Risk - Focused Exam Vital Signs: Vital Signs Temp Pulse Resp BP Pulse Ox 02/08/21 06:05 97.2 F 102 H 16 128/81 97"
[2021-02-08] MEDS ORDERED: Sodium Chloride 0.9% 1,000 ML IV ONE (07:38)
--- NOTE | 2021-02-08 07:43 | US ---
PROCEDURE INFORMATION: Exam: US , Limited Exam date and time: 02/08/2021 6:54 AM Age: 20 years old Clinical indication: Lmp or gestational age (in weeks): 9w; Antepartum complications; Bleeding; ; Additional info: 9 weeks, bleeding, cramping; passed fetus in ER, looking for retained products TECHNIQUE: Imaging protocol: Real-time ultrasound of the maternal uterus with image documentation. Exam focused on the clinical indication. COMPARISON: US OB Transvaginal 12/25/2020 7:44 PM FINDINGS: Gestation: No intrauterine gestational sac. MATERNAL: Uterus: The endometrium measures up to 2.2 cm in thickness. Right adnexa: The right ovary measures 2.0 x 2.4 x 1.3 cm and appears unremarkable. Left adnexa: The left ovary measures 2.3 x 3.1 x 2.0 cm and appears unremarkable. Intraperitoneal space: No demonstrated free fluid. IMPRESSION: No intrauterine gestational sac with the endometrium measuring up to 2.2 cm in thickness, suggesting retained products.
== END 2021-02-08 09:00 | disposition home or self-care (01) ==
LOC: DL.ED 05:56
DX: O03.9 Complete or unspecified spontaneous abortion without complication (principal); J45.909 Unspecified asthma, uncomplicated; Z72.0 Tobacco use; Z91.040 Latex allergy status; Z88.8 Allergy status to other drugs, medicaments and biological substances; Z91.048 Other nonmedicinal substance allergy status
CPT/HCPCS: 36415; 76815; 80053; 84702; 85025; 96374; 96375; 99284; J1885; J2405; J7030

== ENCOUNTER 2022-09-26 09:20 | Inpatient (IN) | payer MEDICAID ==
[2022-09-26] MEDS ORDERED: Oxytocin/Normal Saline 30 UNIT/500 ML BAG IV SCH (09:45)
[2022-09-26] MEDS ORDERED: ceFAZolin 2 GM Vial IVPUSH ONE ×2 (10:00→11:30)
[2022-09-26] MEDS ORDERED: Lactated Ringers 1,000 ML IV SCH (10:00)
[2022-09-26 10:56] LABS: HEMATOCRIT 34.8 % (37.0-47.0); HEMOGLOBIN 11.2 g/dL (12.0-16.0); MEAN CORPUSCULAR HEMOGLOBIN 27.8 pg (27.0-34.0); MEAN CORPUSCULAR HGB CONC 32.2 g/dL (33.0-35.0); MEAN CORPUSCULAR VOLUME 86.4 fL (80-100); RED BLOOD CELL COUNT 4.03 10^6/uL (4.2-5.4); WHITE BLOOD CELL COUNT,WBC 11.8 10^3/uL (5.0-10.0)
[2022-09-26] MEDS ORDERED: ceFAZolin 2 GM Vial ONE (11:02)
[2022-09-26] MEDS ORDERED: Oxytocin/Normal Saline 0 UNIT/0 ML BAG ONE (11:02)
[2022-09-26] MEDS ORDERED: Oxytocin/Normal Saline 30 UNIT/500 ML BAG ONE (11:02)
[2022-09-26] MEDS ORDERED: Citric Acid/Sodium Citrate Solution 30 ML Cup PO ONE (11:30)
[2022-09-26] MEDS: Lactated Ringers 1,000 ML IV SCH ×2 (11:46→21:49)
[2022-09-26] MEDS ORDERED: ceFAZolin 1 GM Vial ONE (12:01)
[2022-09-26] MEDS ORDERED: Ondansetron 4 MG/2 ML SDV IVPUSH PRN (17:10)
[2022-09-26] MEDS ORDERED: Acetaminophen 325 MG Tab PO PRN (17:11)
[2022-09-26] MEDS ORDERED: Acetaminophen/oxyCODONE 325-5 MG Tab PO PRN ×2 (17:12)
[2022-09-26] MEDS ORDERED: ePHEDrine 50 MG/ML SDV IVPUSH PRN (17:13)
[2022-09-26] MEDS ORDERED: diphenhydrAMINE 50 MG/ML SDV IVPUSH PRN (17:13)
[2022-09-26] MEDS ORDERED: Carboprost Tromethamine 250 MCG/1 ML Amp IM PRN (17:14)
[2022-09-26] MEDS ORDERED: Naloxone 2 MG/2 ML Syringe IVPUSH PRN (17:16)
[2022-09-26] MEDS ORDERED: Promethazine 25 MG/ML SDV IM ONE (20:13)
[2022-09-26] MEDS: Ketorolac 30 MG/ML SDV IVPUSH SCH (20:43)
[2022-09-27] MEDS: Simethicone 80 MG Tab.Chew PO SCH ×5 (00:17→21:14)
[2022-09-27] MEDS: Ketorolac 30 MG/ML SDV IVPUSH SCH ×2 (01:10→06:31)
[2022-09-27 06:08] LABS: HEMATOCRIT 30.5 % (37.0-47.0); MEAN CORPUSCULAR HEMOGLOBIN 28.9 pg (27.0-34.0); MEAN CORPUSCULAR HGB CONC 32.8 g/dL (33.0-35.0); MEAN CORPUSCULAR VOLUME 88.2 fL (80-100); RED BLOOD CELL COUNT 3.46 10^6/uL (4.2-5.4); WHITE BLOOD CELL COUNT,WBC 14.1 10^3/uL (5.0-10.0)
[2022-09-27] MEDS: Docusate Sodium 100 MG Cap PO PRN ×2 (08:59→21:14)
[2022-09-27] MEDS: Prenatal Multivitamin with Calcium/Folic Acid/Iron Tab PO SCH (08:59)
[2022-09-27] MEDS ORDERED: Prenatal Multivitamin with Calcium/Folic Acid/Iron Tab PO SCH (09:00)
[2022-09-27] MEDS ORDERED: Docusate Sodium 100 MG Cap PO PRN (09:45)
[2022-09-27] MEDS ORDERED: Ondansetron 4 MG/2 ML SDV IVPUSH PRN (09:45)
[2022-09-27] MEDS ORDERED: Acetaminophen 325 MG Tab PO PRN (09:45)
[2022-09-27] MEDS ORDERED: Acetaminophen/oxyCODONE 325-5 MG Tab PO PRN ×2 (09:45→12:00)
[2022-09-27] MEDS ORDERED: Oxytocin/Normal Saline 30 UNIT/500 ML BAG IV SCH (09:45)
[2022-09-27] MEDS ORDERED: ePHEDrine 50 MG/ML SDV IVPUSH PRN (09:45)
[2022-09-27] MEDS ORDERED: diphenhydrAMINE 50 MG/ML SDV IVPUSH PRN (09:45)
[2022-09-27] MEDS ORDERED: Lactated Ringers 1,000 ML IV SCH (09:45)
[2022-09-27] MEDS ORDERED: Naloxone 2 MG/2 ML Syringe IVPUSH PRN (09:45)
[2022-09-27] MEDS ORDERED: Methylergonovine 0.2 MG/1 ML Amp IM PRN (12:00)
[2022-09-27] MEDS ORDERED: Carboprost Tromethamine 250 MCG/1 ML Amp IM PRN (12:00)
[2022-09-27] MEDS ORDERED: Tranexamic Acid 1,000 MG in Sodium Chloride 0.9% 100 ML IV PRN (12:00)
[2022-09-27] MEDS ORDERED: Misoprostol 400 MCG (4 X 100 MCG TAB) RECTAL PRN (12:00)
[2022-09-27] MEDS: Acetaminophen/oxyCODONE 325-5 MG Tab PO PRN ×2 (14:44→20:10)
[2022-09-27] MEDS ORDERED: Simethicone 80 MG Tab.Chew PO SCH (17:00)
[2022-09-27] MEDS: Ibuprofen 800 MG Tab PO PRN (17:54)
[2022-09-28] MEDS: Acetaminophen/oxyCODONE 325-5 MG Tab PO PRN ×2 (01:08→05:43)
[2022-09-28] MEDS: Ibuprofen 800 MG Tab PO PRN (05:43)
[2022-09-28] MEDS: Prenatal Multivitamin with Calcium/Folic Acid/Iron Tab PO SCH (08:44)
[2022-09-28] MEDS: Simethicone 80 MG Tab.Chew PO SCH (08:44)
[2022-09-28] MEDS: Docusate Sodium 100 MG Cap PO PRN (08:44)
[2022-09-28 13:08] VITALS: BP 132/74; PULSE 107
== END 2022-09-28 12:39 | disposition home or self-care (01) | DRG 787 ==
LOC: DL.OB 09:20 → OBSVTOIN 12:13 → DL.OB 12:13 → DL.MS 09-28 01:42
PROVIDERS: ADMIT Family Medicine; ATTEND Family Medicine
PROC: 10D00Z1 Extraction of Products of Conception, Low, Open Approach (ICD-10-PCS; principal; 2022-09-26)
DX: O34.211 Maternal care for low transverse scar from previous cesarean delivery (principal); D62 Acute posthemorrhagic anemia; Z37.0 Single live birth; O99.814 Abnormal glucose complicating childbirth; O99.03 Anemia complicating the puerperium; Z3A.39 39 weeks gestation of pregnancy; Z91.040 Latex allergy status; Z87.891 Personal history of nicotine dependence
CPT/HCPCS: 36415; 59025; 85027; 86850; 86900; 86901; A9270-GY; J1885; J2405; J2550; J2590; J7120

== ENCOUNTER 2024-02-12 09:43 | Inpatient (IN) | payer MEDICAID ==
[2024-02-12] MEDS ORDERED: Carboprost Tromethamine 250 MCG/1 ML Amp IM PRN ×2 (10:00)
[2024-02-12] MEDS ORDERED: Naloxone 2 MG/2 ML Syringe IVPUSH PRN (10:00)
[2024-02-12] MEDS ORDERED: Acetaminophen 325 MG Tab PO PRN (10:00)
[2024-02-12] MEDS ORDERED: ceFAZolin 2 GM Vial IVPUSH ONE (10:00)
[2024-02-12] MEDS ORDERED: ePHEDrine 50 MG/ML SDV IVPUSH PRN (10:00)
[2024-02-12] MEDS ORDERED: Ondansetron 4 MG/2 ML SDV IVPUSH PRN (10:00)
[2024-02-12] MEDS ORDERED: Lactated Ringers 1,000 ML IV SCH ×2 (10:00)
[2024-02-12] MEDS ORDERED: Oxytocin 10 Units/1 ML SDV IM PRN (10:00)
[2024-02-12] MEDS ORDERED: Methylergonovine 0.2 MG/1 ML Amp IM PRN (10:00)
[2024-02-12] MEDS ORDERED: diphenhydrAMINE 50 MG/ML SDV IVPUSH PRN (10:00)
[2024-02-12] MEDS ORDERED: Tranexamic Acid 1,000 MG in Sodium Chloride 0.9% 100 ML IV PRN (10:00)
[2024-02-12] MEDS ORDERED: Ibuprofen 800 MG Tab PO SCH (10:00)
[2024-02-12] MEDS ORDERED: Methylergonovine 0.2 MG Tab PO PRN (10:00)
[2024-02-12] MEDS ORDERED: Misoprostol 400 MCG (4 X 100 MCG TAB) RECTAL PRN (10:00)
[2024-02-12] MEDS ORDERED: Sodium Chloride 0.9% 10 ML Syringe FLUSH PRN (10:00)
[2024-02-12] MEDS ORDERED: Misoprostol 400 MCG (4 X 100 MCG TAB) RECTAL ONE (10:00)
[2024-02-12] MEDS: Lactated Ringers 1,000 ML IV SCH (10:15)
[2024-02-12 10:21] LABS: HEMATOCRIT 32.3 % (37.0-47.0); HEMOGLOBIN 10.4 g/dL (12.0-16.0); MEAN CORPUSCULAR HEMOGLOBIN 26.8 pg (27.0-34.0); MEAN CORPUSCULAR HGB CONC 32.2 g/dL (33.0-35.0); MEAN CORPUSCULAR VOLUME 83.2 fL (80-100); RED BLOOD CELL COUNT 3.88 10^6/uL (4.2-5.4); WHITE BLOOD CELL COUNT,WBC 9.7 10^3/uL (5.0-10.0)
[2024-02-12] MEDS ORDERED: Dexamethasone 4 MG/ML SDV ONE (11:13)
[2024-02-12] MEDS ORDERED: Ondansetron 4 MG/2 ML SDV ONE (11:13)
[2024-02-12] MEDS ORDERED: Tranexamic Acid 1,000 MG/10 ML Vial ONE (11:13)
[2024-02-12] MEDS ORDERED: ceFAZolin 2 GM Vial ONE (11:13)
[2024-02-12] MEDS ORDERED: Oxytocin 10 Units/1 ML SDV ONE (11:13)
[2024-02-12] MEDS ORDERED: ceFAZolin 1 GM Vial ONE (11:41)
[2024-02-12] MEDS: Oxytocin/Normal Saline 30 UNIT/500 ML BAG IV SCH (12:55)
[2024-02-12] MEDS: Sodium Chloride 0.9% 10 ML Syringe FLUSH SCH (14:10)
[2024-02-12] MEDS: Prenatal Multivitamin with Calcium/Folic Acid/Iron Tab PO SCH (14:10)
[2024-02-12] MEDS: Simethicone 80 MG Tab.Chew PO SCH (14:10)
[2024-02-12] MEDS: ceFAZolin 1 GM Vial IVPUSH ONE (14:10)
[2024-02-12] MEDS: Ketorolac 30 MG/ML SDV IVPUSH SCH ×2 (15:04→19:03)
[2024-02-13] MEDS: Docusate Sodium 100 MG Cap PO PRN (01:03)
[2024-02-13 06:27] LABS: HEMATOCRIT 29.1 % (37.0-47.0); HEMOGLOBIN 9.1 g/dL (12.0-16.0); MEAN CORPUSCULAR HEMOGLOBIN 26.5 pg (27.0-34.0); MEAN CORPUSCULAR HGB CONC 31.3 g/dL (33.0-35.0); MEAN CORPUSCULAR VOLUME 84.6 fL (80-100); RED BLOOD CELL COUNT 3.44 10^6/uL (4.2-5.4); WHITE BLOOD CELL COUNT,WBC 13.6 10^3/uL (5.0-10.0)
[2024-02-13] MEDS: Acetaminophen/oxyCODONE 325-5 MG Tab PO PRN (09:35)
[2024-02-13] MEDS: Ibuprofen 800 MG Tab PO SCH (15:04)
[2024-02-14] MEDS: Ondansetron 4 MG Tab.DIS PO ONE (07:39)
[2024-02-14] MEDS: Acetaminophen/oxyCODONE 325-5 MG Tab PO PRN (11:33)
[2024-02-14 13:47] VITALS: BP 130/81; PULSE 104
== END 2024-02-14 11:45 | disposition home or self-care (01) | DRG 788 ==
LOC: DL.OB 09:43 → OBSVTOIN 12:19
PROVIDERS: ADMIT Family Medicine; ATTEND Family Medicine
PROC: 10D00Z1 Extraction of Products of Conception, Low, Open Approach (ICD-10-PCS; principal; 2024-02-12 12:00)
DX: O34.211 Maternal care for low transverse scar from previous cesarean delivery (principal); O99.02 Anemia complicating childbirth; O99.62 Diseases of the digestive system complicating childbirth; O99.814 Abnormal glucose complicating childbirth; Z37.0 Single live birth; Z3A.39 39 weeks gestation of pregnancy
CPT/HCPCS: 36415; 51701; 59025; 85027; 86850; 86900; 86901; A9270-GY; J1885; J2590; J7120